=== PATIENT | female | born 1990 | race Caucasian/White ===

== ENCOUNTER 2016-12-20 11:20 | Emergency (ER) | payer MEDICAID ==
[~2016-12-20] VITALS: Ht 165.1 cm; Wt 81.0 kg
[2016-12-20 11:20] VITALS: BP 131/72; PULSE 73; RESP 12; TEMP 98.1; O2SAT 98; Ht 165.1 cm; Wt 81.0 kg
[~2016-12-20 11:20] MED LIST: CYCL-375 PO; DIAZ10TA PO; OXYC1TAB13 PO; SERT100T PO
--- OUTSIDE RECORDS SUMMARY | 2016-12-20 11:25 | XMS REPORT | Referral Summary ---
Author Author [facility] Organization [facility] Address Unknown Phone Unavailable Care Team Providers Care Truckload Checker Name Role Phone James Vega Primary Care Physician [phone] Encounter MARINA [id number] Date(s): 04/28/16 - 04/28/16 [facility], [facility] [address] [place] [id number] Discharge Diagnosis: Vitamin D deficiency Discharge Diagnosis: Body aches Discharge Diagnosis: Fatigue Discharge Disposition: 01-Home or Self Care Attending Physician: Kandi Fowler Admitting Physician: Kandi Fowler Vital Signs Most recent to 1 oldest [Reference Range]: Temperature Oral 37.0 degC [35.8-37.3 degC] (04/28/16 1:48 PM) Blood Pressure 112/64 mmHg [90-140/60-90 mmHg] (04/28/16 1:48 PM) Problem List Condition Effective Dates Status Health Status Informant Allergy rhinitis/hay Active fever(Confirmed) Alopecia(Confirmed) Active Anxiety state Active (finding)(Confirmed) Hemorrhoids, Active internal, with bleeding(Confirmed) Bronchitis(Confirmed Active ) Depressed bipolar I Active disorder (disorder)(Confirmed ) External hemorrhoids Active without complication (disorder)(Confirmed ) Fibromyalgia(Confirm Active ed) Insomnia(Confirmed) Active Irritable bowel Active disease(Confirmed) Migraine Active headaches(Confirmed) Obesity(Confirmed) Active patient Severe mixed bipolar Active I disorder without psychotic features (disorder)(Confirmed ) Allergies, Adverse Reactions, Alerts Substance Reaction Severity Status Diclofenac Sodium Nausea and vomiting Mild Active 01-APR-2016 16:29:05<$> HYDROcodone Active lamoTRIgine rash Active nortriptyline Pt states-Heart Attack symptoms Active penicillin Hives Active Stadol Active Medications Ambien 10 mg oral tablet 5 mg 0.5 tabs, Oral, Bedtime (once a day), as needed for sleep, # 15 tabs, 0 Refill(s) Start Date: 03/31/16 Status: Ordered cyclobenzaprine 10 mg oral tablet See Instructions, TAKE ONE TABLET BY MOUTH THREE TIMES DAILY, # 90 tabs, eRx: [id number], TAKE ONE TABLET BY MOUTH THREE TIMES DAILY Start Date: 03/27/16 Status: Ordered sertraline 100 mg oral tablet 200 mg 2 tabs, Oral, Daily, # 60 tabs, 3 Refill(s), Pharmacy: [facility] # [id number], 2 tabs Oral Daily Start Date: 01/31/16 Status: Ordered Valium 10 mg oral tablet 10 mg 1 tabs, Oral, TID, as needed for anxiety, # 40 tabs, 0 Refill(s), called to pharmacy (Rx) Start Date: 04/01/16 Status: Ordered Vicoprofen 7.5 mg-200 mg oral tablet 1-2 tabs, Oral, q4hr, as needed for pain, # 60 tabs, 0 Refill(s) Start Date: 04/28/16 Status: Ordered Results Hematology Most recent to 1 oldest [Reference Range]: WBC [4.8-10.8 8.8 10*3/uL 10*3/uL] (04/28/16 2:33 PM) RBC [4.00-5.20] 4.87 (04/28/16 2:33 PM) Hgb [12.0-16.0 14.3 gm/dL gm/dL] (04/28/16 2:33 PM) Hct [37.0-47.0 %] 41.2 % (04/28/16 2:33 PM) MCV [82.0-99.0 fL] 84.6 fL (04/28/16 2:33 PM) MCH [27.0-32.0 pg] 29.4 pg (04/28/16 2:33 PM) MCHC [32.0-36.0 34.7 gm/dL gm/dL] (04/28/16 2:33 PM) RDW [11.5-14.5 %] 12.5 % (04/28/16 2:33 PM) Platelet [150-400 259 10*3/uL 10*3/uL] (04/28/16 2:33 PM) MPV [8.8-14.8 fL] 10.7 fL (04/28/16 2:33 PM) Immature 0.3 % Granulocytes (04/28/16 2:33 PM) [0.0-1.0 %] Neutrophils [51-75 68 % %] (04/28/16 2:33 PM) Lymphocytes [20-46 24 % %] (04/28/16 2:33 PM) Monocytes [4-11 %] 6 % (04/28/16 2:33 PM) Eosinophils [0-4 %] 1 % (04/28/16 2:33 PM) Basophils [0-2 %] 0 % (04/28/16 2:33 PM) Neutro Absolute 6.00 10*3 [1.90-7.00 10*3] (04/28/16 2:33 PM) Lymph Absolute 2.12 10*3 [0.80-3.30 10*3] (04/28/16 2:33 PM) Craven Absolute 0.52 10*3 [0.30-1.00 10*3] (04/28/16 2:33 PM) Eos Absolute 0.10 10*3 [0.00-0.50 10*3] (04/28/16 2:33 PM) Baso Absolute 0.02 10*3 [0.00-0.20 10*3] (04/28/16 2:33 PM) Sed Rate [0-23] 7 (04/28/16 2:33 PM) Chemistry Most recent to 1 oldest [Reference Range]: Sodium Lvl [135-144 138 mEq/L mEq/L] (04/28/16 2:33 PM) Potassium Lvl 4.0 mEq/L [3.5-5.2 mEq/L] (04/28/16 2:33 PM) Chloride [99-111 104 mEq/L mEq/L] (04/28/16 2:33 PM) CO2 [22-31 mEq/L] 23 mEq/L (04/28/16 2:33 PM) AGAP [3-20] 11 (04/28/16 2:33 PM) BUN [7-19 mg/dL] 20 mg/dL *HI* (04/28/16 2:33 PM) Glucose Lvl [70-99 87 mg/dL mg/dL] (04/28/16 2:33 PM) Creatinine Lvl 0.86 mg/dL [0.57-1.11 mg/dL] (04/28/16 2:33 PM) eGFR [>60 mL/min] >60 mL/min 1 (04/28/16 2:33 PM) Calcium Lvl 9.9 mg/dL [8.9-10.5 mg/dL] (04/28/16 2:33 PM) Albumin Lvl [3.5-5.0 5.0 gm/dL gm/dL] (04/28/16 2:33 PM) Total Protein 7.7 gm/dL 2 [6.1-7.7 gm/dL] (04/28/16 2:33 PM) Globulin [1.8-4.0 2.7 gm/dL gm/dL] (04/28/16 2:33 PM) ALT [0-55 U/L] 49 U/L (04/28/16 2:33 PM) AST [5-34 U/L] 21 U/L (04/28/16 2:33 PM) Alk Phos [40-150 67 U/L U/L] (04/28/16 2:33 PM) Bili Total [0.2-1.2 0.6 mg/dL mg/dL] (04/28/16 2:33 PM) Uric Acid [2.6-6.0 4.5 mg/dL mg/dL] (04/28/16 2:33 PM) T4 Free [0.7-1.5 1.0 ng/dL ng/dL] (04/28/16 2:33 PM) TSH [0.35-4.94] 2.46 (04/28/16 2:33 PM) 1Result Comment: Multiply eGFR results by 1.21 for race. 2Result Comment: Please note new reference range for adult Protein. Immunizations Vaccine Date Refusal Reason diphtheria/pertussis, acel/tetanus ped 03/11/94 diphtheria/pertussis, acel/tetanus ped 08/26/90 diphtheria/pertussis, acel/tetanus ped 89 diphtheria/pertussis, acel/tetanus ped 89 diphtheria/pertussis, acel/tetanus ped 89 haemophilus b conjugate (HbOC) vaccine 05/28/90 hepatitis B pediatric vaccine 09/23/99 hepatitis B pediatric vaccine 03/28/99 hepatitis B pediatric vaccine 02/25/99 human papillomavirus vaccine 04/14/08 human papillomavirus vaccine 12/08/07 human papillomavirus vaccine 10/14/07 influenza virus vaccine, live 06/05/09 measles/mumps/rubella virus vaccine 05/28/90 meningococcal conjugate vaccine 10/14/07 poliovirus vaccine, inactivated 03/07/04 poliovirus vaccine, inactivated 03/11/94 poliovirus vaccine, inactivated 08/26/90 poliovirus vaccine, inactivated 89 poliovirus vaccine, inactivated 89 tetanus-diphth toxoids (Td) adult/adol 03/13/04 Procedures Procedure Date Related Diagnosis Body Site Adenoidectomy Appendectomy Cholecystectomy Lump removal1 Sinus surgery2 Tonsillectomy 1See NextGen. 2see NextGen. Social History Social History Type Response Smoking Status Never smoker Assessment and Plan Extracted from: Title: Office Visit Note Author: Kandi Fowler Date: 04/28/16 Assessment/Plan 1.Fatigue She will be notified of results. Will order sleep study. F/U based on results. Ordered: BERNARDINO Screen CBC w/ Differential Comprehensive Metabolic Panel Free T4 Rheumatoid Factor Sedimentation Rate TSH 3rd Generation Uric Acid 2.Body aches Vicoprofen instead of Percocet. Ordered: BERNARDINO Screen Rheumatoid Factor Sedimentation Rate Uric Acid 3.Vitamin D deficiency Will check Vitamin D level. Ordered: Vitamin D 25 Hydroxy Level Orders: HYDROcodone-ibuprofen, 1-2 tabs, Oral, q4hr, as needed for pain, # 60 tabs, 0 Refill(s)
--- OUTSIDE RECORDS SUMMARY | 2016-12-20 11:25 | XMS REPORT | Referral Summary ---
Author Author [facility] Organization [facility] Address Unknown Phone Unavailable Care Team Providers Care Butt Trimmer Name Role Phone James Vega Primary Care Physician [phone] Encounter VC GRAY [id number] Date(s): 05/10/15 - 05/10/15 [facility] [address] [place] [id number] Discharge Diagnosis: Sinus pressure Discharge Diagnosis: Oral aphthous ulcer Discharge Diagnosis: Headache Discharge Disposition: 01-Home or Self Care Attending Physician: Kandi Fowler Vital Signs Most recent to 1 oldest [Reference Range]: Temperature Oral 36.9 degC [35.8-37.3 degC] (05/10/15 1:44 PM) Peripheral Pulse 107 bpm Rate [60-100 bpm] *HI* (05/10/15 1:44 PM) Blood Pressure 110/70 mmHg [90-140/60-90 mmHg] (05/10/15 1:44 PM) SpO2 96 % (05/10/15 1:44 PM) Problem List Condition Effective Dates Status Health Status Informant Allergy rhinitis/hay Active fever(Confirmed) Alopecia(Confirmed) Active Anxiety state Active (finding)(Confirmed) Hemorrhoids, Active internal, with bleeding(Confirmed) Depressed bipolar I Active disorder (disorder)(Confirmed ) External hemorrhoids Active without complication (disorder)(Confirmed ) Fibromyalgia(Confirm Active ed) Insomnia(Confirmed) Active Irritable bowel Active disease(Confirmed) Migraine Active headaches(Confirmed) Obesity(Confirmed) Active patient Severe mixed bipolar Active I disorder without psychotic features (disorder)(Confirmed ) Allergies, Adverse Reactions, Alerts Substance Reaction Severity Status HYDROcodone Active lamoTRIgine rash Active nortriptyline Pt states-Heart Attack symptoms Active penicillin Hives Active Stadol Active Medications Ambien 10 mg oral tablet 5 mg 0.5 tabs, Oral, Bedtime (once a day), as needed for sleep, LF 09/11/15, # 15 tabs, 0 Refill(s) Start Date: 11/08/15 Status: Ordered Ativan 0.5 mg oral tablet .5-1 tabs, Oral, BID, as needed for anxiety, # 30 tabs, 0 Refill(s) Start Date: 01/12/15 Status: Ordered Bystolic 5 mg oral tablet 1 tabs, Oral, Daily, # 30 tabs, 5 Refill(s), Pharmacy: [facility] #[facility], 1 tabs Oral Daily Start Date: 01/05/15 Status: Ordered cyclobenzaprine 10 mg oral tablet 10 mg 1 tabs, Oral, TID, # 90 tabs, 0 Refill(s), Pharmacy: [facility] #[facility] , 1 tabs Oral TID Start Date: 04/02/15 Status: Ordered Fiorinal oral capsule 2 caps, Oral, q6hr, as needed for pain, # 30 caps, 0 Refill(s) Start Date: 07/17/15 Status: Ordered Percocet 10/325 oral tablet 1 tabs, Oral, q6hr, as needed for pain, # 60 tabs, 0 Refill(s) Start Date: 09/17/15 Status: Ordered Saxenda 18 mg/3 mL subcutaneous solution 3 mg, SubCutaneous, Daily, # 15 mL, 5 Refill(s), Pharmacy: [facility] , 3 mg SubCutaneous Daily,x30 days Start Date: 04/24/15 Stop Date: 10/21/15 Status: Ordered sertraline 50 mg oral tablet 150 mg 3 tabs, Oral, Daily, # 270 tabs, 3 Refill(s), Pharmacy: [facility] # [facility], 3 tabs Oral Daily Start Date: 08/14/15 Status: Ordered Topamax 25 mg oral tablet See Instructions, 1 tab oral qhs x1 week, then 1 tab BID, # 60 tabs, 0 Refill(s) , Pharmacy: [facility], 1 tab oral qhs x1 week, then 1 tab BID Start Date: 10/05/15 Status: Ordered Valium 10 mg oral tablet 10 mg 1 tabs, Oral, TID, as needed for anxiety, # 30 tabs, 0 Refill(s) Start Date: 09/17/15 Status: Ordered Results No data available for this section Immunizations Vaccine Date Refusal Reason diphtheria/pertussis, acel/tetanus [...] Office Visit Note Author: Kandi Fowler Date: 05/10/15 Assessment/Plan 1.Oral aphthous ulcer Magic mouthwash. Ordered: triamcinolone, 80 mg, IntraMuscular, Once, First Dose: 05/10/15 15:00:00 CDT, Stop Date: 05/10/15 15:00:00 CDT 2.Headache Ordered: triamcinolone, 80 mg, IntraMuscular, Once, First Dose: 05/10/15 15:00:00 CDT, Stop Date: 05/10/15 15:00:00 CDT 3.Sinus pressure Kenalog 80 mg IM. Z-aleksey. Follow up 1 week if symptoms persist. Ordered: triamcinolone, 80 mg, IntraMuscular, Once, First Dose: 05/10/15 15:00:00 CDT, Stop Date: 09/03/15 15:00:00 CDT Orders: azithromycin, 1 packets, Oral, Daily, as directed on package labeling , X 5 days, # 6 tabs, 0 Refill(s), Pharmacy: [facility] #[facility], 1 packets Oral Daily,x5 days,Instr:as directed on package labeling lidocaine topical, 0.1 g 5 mL, Topical, QIDACHS, Mix equal parts Benadryl Elixir, Maalox, Carafate solution and Viscous lidocaine to total 100 mL, # 100 mL, 2 Refill(s), Pharmacy: [facility] #[facility] oxyCODONE-acetaminophen, 1 tabs, Oral, q6hr, as needed for pain, # 60 tabs, 0 Refill(s) sertraline, 100 mg 2 tabs, Oral, Daily, # 180 tabs, 3 Refill(s), Pharmacy: [facility] #[facility], 2 tabs Oral Daily zolpidem, 5 mg 0.5 tabs, Oral, Bedtime (once a day), as needed for sleep, # 15 tabs, 0 Refill(s)
--- OUTSIDE RECORDS SUMMARY | 2016-12-20 11:25 | XMS REPORT | Referral Summary ---
Author Author [facility] Organization [facility] Address Unknown Phone Unavailable Care Team Providers Care Counter Former Name Role Phone aJmes Vega Primary Care Physician [phone] Encounter VC Date(s): 12/13/15 - 12/13/15 [facility] [address] [place] [id number] Discharge Diagnosis: Acute right flank pain Discharge Diagnosis: RLQ abdominal pain Discharge Disposition: 01-Home or Self Care Attending Physician: Naa Dutton APRN Admitting Physician: Naa Dutton APRN Referring Physician: Amish Vega MD Vital Signs Most recent to 1 oldest [Reference Range]: Temperature Oral 36.4 degC [35.8-37.3 degC] (12/13/15 8:53 AM) Peripheral Pulse 82 bpm Rate [60-100 bpm] (12/13/15 8:53 AM) Respiratory Rate 18 br/min [14-20 br/min] (12/13/15 8:53 AM) Blood Pressure 120/82 mmHg [90-140/60-90 mmHg] (12/13/15 8:53 AM) SpO2 99 % (12/13/15 8:53 AM) Problem List Condition Effective Dates Status Health [...] needed for sleep, # 15 tabs, 0 Refill(s), called to pharmacy (Rx) Start Date: 12/04/15 Status: Ordered Ativan 0.5 mg oral tablet [...] Oral TID Start Date: 04/02/15 Status: Ordered diclofenac sodium 75 mg oral delayed release tablet 75 mg 1 tabs, Oral, BID, # 60 tabs, 3 Refill(s), Pharmacy: [facility] , 1 tabs Oral BID Start Date: 12/13/15 Status: Ordered Fiorinal oral capsule 2 caps, Oral, q6hr, as needed for pain, # 30 caps, 0 Refill(s) Start Date: 07/17/15 Status: Ordered Percocet 10/325 oral tablet 1 tabs, Oral, q6hr, as needed for pain, # 60 tabs, 0 Refill(s) Start Date: 12/13/15 Status: Ordered Saxenda 18 mg/3 mL subcutaneous [...] Oral Daily Start Date: 08/14/15 Status: Ordered Skelaxin 800 mg oral tablet 800 mg 1 tabs, Oral, Bedtime (once a day), # 30 tabs, 1 Refill(s), Pharmacy: [facility], 1 tabs Oral Bedtime (once a day) Start Date: 12/04/15 Status: Ordered Topamax 25 mg oral tablet [...] Refill(s) Start Date: 09/17/15 Status: Ordered Results Urinalysis Most recent to 1 oldest [Reference Range]: UA Color Yellow (12/13/15 10:05 AM) UA Appear Sl Cloudy (12/13/15 10:05 AM) UA pH [5.0-8.0] 5.0 (12/13/15 10:05 AM) UA Leuk Est Negative [Negative] (12/13/15 10:05 AM) UA Nitrite Negative [Negative] (12/13/15 10:05 AM) UA Protein Negative [Negative] (12/13/15 10:05 AM) UA Glucose Negative [Negative] (12/13/15 10:05 AM) UA Ketones Negative [Negative] (12/13/15 10:05 AM) UA Urobilinogen 0.2 mg/dL [<=1.0 mg/dL] (12/13/15 10:05 AM) UA Bili [Negative] Negative (12/13/15 10:05 AM) UA Blood [Negative] Negative (12/13/15 10:05 AM) UA Spec Grav 1.025 [1.003-1.030] (12/13/15 10:05 AM) Type Clean Catch (12/13/15 10:05 AM) Microbiology Reports TEST: Wet Prep Exam STATUS: Auth (Verified) BODY SITE: SOURCE: Vaginal COLLECTED DATE/TIME: 12/13/15 10:05 AM Wet Prep Exam No Trichomonas, yeast or clue cells observed Immunizations Vaccine Date Refusal Reason diphtheria/pertussis, acel/tetanus [...] smoker Assessment and Plan Extracted from: Title: Right flank and suprapubic Author: Naa Dutton APRN Date: pain Assessment/Plan Acute right flank pain Repeat UA to ensure no changes. Do have some suspicion for renal calculi. Ordered: Office Visit Level 4 Est [id number] Urinalysis with Culture if Indicated US Transvaginal/Pelvic Complete RLQ abdominal pain Did refill Percocet for use at bedtime only. IM Toradol and use of Diclofenac BID for at least 4-6 weeks. Repeat sonogram pending. Follow closely. Await cultures. Ordered: Chlamydia/GC Nucleic Acid Screen Genital Culture Office Visit Level 4 Est [id number] Urinalysis with Culture if Indicated US Transvaginal/Pelvic Complete Wet Prep Exam Orders: diclofenac, 75 mg 1 tabs, Oral, BID, # 60 tabs, 3 Refill(s), Pharmacy : [id number], 1 tabs Oral BID oxyCODONE-acetaminophen, 1 tabs, Oral, q6hr, as needed for pain, # 60 tabs, 0 Refill(s) Addendum Renal CT was performed 05/02/14. Recent UA 11/23/15 was negative. by Naa Dutton APRN on December 13, 2015 10:31:40 CDT
--- OUTSIDE RECORDS SUMMARY | 2016-12-20 11:25 | XMS REPORT | Referral Summary ---
Author Author [facility] Organization [facility] Address Unknown Phone Unavailable Care Team Providers Care Barrer And Tacker Name Role Phone James Vega Primary Care Physician [phone] Encounter VC GRAY [id number] Date(s): 04/24/15 - 04/24/15 [facility] [address] [place] [id number] Discharge Diagnosis: Obesity Discharge Disposition: 01-Home or Self Care Attending Physician: Kandi Fowler Admitting Physician: Kandi Fowler Vital Signs Most recent to 1 oldest [Reference Range]: Peripheral Pulse 92 bpm Rate [60-100 bpm] (04/24/15 1:27 PM) Blood Pressure 110/74 mmHg [90-140/60-90 mmHg] (04/24/15 1:27 PM) Problem List Condition Effective Dates Status [...] Refill(s), called to pharmacy (Rx) Start Date: 09/11/15 Status: Ordered Ativan 0.5 mg oral tablet [...] 0 Refill(s) Start Date: 09/17/15 Status: Ordered Percocet 10/325 oral tablet 1 tabs, Oral, q6hr, as needed for pain, # 60 tabs, 0 Refill(s) Start Date: 08/14/15 Status: Ordered Saxenda 18 mg/3 mL subcutaneous [...] 0 Refill(s) Start Date: 09/17/15 Status: Ordered Valium 10 mg oral tablet 10 mg 1 tabs, Oral, TID, as needed for anxiety, # 30 tabs, 0 Refill(s) Start Date: 08/07/15 Status: Ordered Results No data available for [...] Office Visit Note Author: Kandi Fowler Date: 04/24/15 Assessment/Plan 1.Obesity Discussed multiple weight loss options. Patient will start Saxenda. Instructions for use and possible side effects discussed. She self- administered her first dose in the office and showed proficiency. Follow up in 1 month. Orders: liraglutide, 3 mg, SubCutaneous, Daily, # 15 mL, 5 Refill(s), Pharmacy : [id number], 3 mg SubCutaneous Daily,x30 days
--- OUTSIDE RECORDS SUMMARY | 2016-12-20 11:25 | XMS REPORT | Referral Summary ---
Author Author [facility] Organization [facility] Address Unknown Phone Unavailable Care Team Providers Care Privacy Director Name Role Phone James Vega Primary Care Physician [phone] Encounter Date(s): 08/04/16 - 08/04/16 [facility], [facility] [address] [place] [id number] Discharge Disposition: 01-Home or Self Care Attending Physician: Maritza Bello PA-C Admitting Physician: Maritza Bello PA-C Referring Physician: mAish Vega MD Vital Signs Most recent to 1 oldest [Reference Range]: Peripheral Pulse 91 bpm Rate [60-100 bpm] (08/04/16 1:51 PM) Blood Pressure 126/78 mmHg [90-140/60-90 mmHg] (08/04/16 1:51 PM) Problem List Condition Effective Dates Status [...] Reaction Severity Status Diclofenac Sodium Nausea and vomiting..... Mild Active HYDROcodone Active lamoTRIgine rash Active nortriptyline Pt states-Heart Attack symptoms Active penicillin Hives Active Stadol Active Vicoprofen Active Medications Ambien 10 mg oral tablet 5 mg 0.5 tabs, Oral, Bedtime (once a day), as needed for sleep, # 15 tabs, 0 Refill(s) Start Date: 06/03/16 Status: Ordered cyclobenzaprine 10 mg oral tablet See Instructions, TAKE ONE TABLET BY MOUTH THREE TIMES DAILY, # 90 tabs, eRx: [facility] [id number] [facility], TAKE ONE TABLET BY MOUTH THREE TIMES DAILY Start Date: 03/27/16 Status: Ordered Drisdol 50,000 intl units (1.25 mg) oral capsule See Instructions, 1 cap every other week x 3 months, # 6 Each, 0 Refill(s), Pharmacy: [facility] [id number] [facility], 1 cap every other week x 3 months Start Date: 04/30/16 Status: Ordered hydrOXYzine hydrochloride 50 mg oral tablet 50 mg 1 tabs, Oral, QID, itching, # 60 tabs, 5 Refill(s), Pharmacy: [facility] [id number] [facility], 1 tabs Oral QID,PRN:itching Start Date: 05/09/16 Status: Ordered Magic Mouthwash Magic Mouthwash, See Instructions, Benadryl Elixir 50mL, Viscous Lidocaine 2% 50 mL, Maalox 50 mL, Carafate Solution 50 mL Swish/Spit 5mL QID x10 days, # 200 mL, 0 Refill(s), Pharmacy: [facility] [id number] [facility], Benadryl Elixir 50mL, Viscous Lidocaine 2% 5... Start Date: 05/06/16 Status: Ordered Percocet 10/325 oral tablet 1 tabs, Oral, q6hr, as needed for pain, # 120 tabs, 0 Refill(s) Start Date: 07/22/16 Status: Ordered promethazine 50 mg oral tablet 1-2 tabs, Oral, Bedtime (once a day), as needed for nausea/vomiting, # 30 tabs, 0 Refill(s), Pharmacy: [facility]/pharmacy #[id number], 1-2 tabs Oral Bedtime (once a day), PRN:as needed for nausea/vomiting Start Date: 07/09/16 Status: Ordered sertraline 100 mg oral tablet See Instructions, TAKE 2 TABLETS BY MOUTH DAILY, # 60 tabs, 1 Refill(s), Pharmacy: [facility]/pharmacy #[id number], please be sure to fill 100mg script as it was last filled as 50mg script. Thanks., TAKE 2 TABLETS BY MOUTH DAILY Start Date: 07/22/16 Status: Ordered Valium 10 mg oral tablet 10 mg 1 tabs, Oral, TID, as needed for anxiety, # 40 tabs, 0 Refill(s), called to pharmacy (Rx) Start Date: 04/01/16 Status: Ordered Results No data available for [...] Smoking Status Never smoker Assessment and Plan No data available for this section
--- OUTSIDE RECORDS SUMMARY | 2016-12-20 11:25 | XMS REPORT | Referral Summary ---
Author Author [facility] Organization [facility] Address Unknown Phone Unavailable Care Team Providers Care Fire Extinguisher Charger Name Role Phone James Vega Primary Care Physician [phone] Encounter VC Date(s): 10/03/15 - 10/03/15 [facility] [address] [place] [id number] Discharge Disposition: 01-Home or Self Care Attending Physician: Amish Vega MD Admitting Physician: Amish Vega MD Vital Signs No data available for this section Problem List Condition Effective Dates Status Health [...] Oral Daily Start Date: 08/14/15 Status: Ordered Valium 10 mg oral tablet [...] this section Immunizations Vaccine Date Refusal Reason hepatitis B adult vaccine 09/23/99 hepatitis B pediatric vaccine 03/28/99 hepatitis B pediatric vaccine 02/25/99 human papillomavirus vaccine 04/14/08 human papillomavirus vaccine 12/08/07 human papillomavirus vaccine 10/14/07 influenza virus vaccine, live 06/05/09 meningococcal conjugate vaccine 10/14/07 tetanus-diphth toxoids (Td) adult/adol 03/13/04 Procedures Procedure Date Related Diagnosis Body Site Adenoidectomy Appendectomy Cholecystectomy Lump removal1 Sinus surgery2 Tonsillectomy 1See NextGen. 2see NextGen. Social History Social History Type Response Smoking Status Never smoker Assessment and Plan No data available for this section
--- OUTSIDE RECORDS SUMMARY | 2016-12-20 11:25 | XMS REPORT | Referral Summary ---
Author Author [facility] Organization [facility] Address Unknown Phone Unavailable Care Team Providers Care Software Applications Engineer Name Role Phone James Vega Primary Care Physician [phone] Encounter [facility] Date(s): 05/21/15 - 05/21/15 [facility] [address] [place] [id number] Discharge Diagnosis: Heart palpitations Discharge Diagnosis: Near syncope Discharge Disposition: 01-Home or Self Care Attending Physician: Kandi Fowler Admitting Physician: Kandi Fowler Vital Signs Most recent to 1 oldest [Reference Range]: Peripheral Pulse 80 bpm Rate [60-100 bpm] (05/21/15 10:14 AM) Blood Pressure 106/76 mmHg [90-140/60-90 mmHg] (05/21/15 10:14 AM) Problem List Condition Effective Dates Status [...] Refill(s) Start Date: 09/17/15 Status: Ordered Results Chemistry Most recent to 1 oldest [Reference Range]: Glucose Lvl [70-99 87 mg/dL mg/dL] (05/21/15 11:35 AM) Glucose Fasting 86 mg/dL [70-99 mg/dL] (05/21/15 11:35 AM) Gluc 1 Hr [120-170 152 mg/dL mg/dL] (05/21/15 11:35 AM) Gluc 2 Hr [70-139 75 mg/dL mg/dL] (05/21/15 11:35 AM) Insulin Fasting 9 [2-23] (05/21/15 11:35 AM) INS OBI - 1 hr 145 Specimen [41-101] *HI* (05/21/15 11:35 AM) INS OBI - 2 hr 36 Specimen [9-57] (05/21/15 11:35 AM) T4 Free [0.7-1.5 1.2 ng/dL ng/dL] (05/21/15 11:35 AM) TSH [0.35-4.94] 1.11 (05/21/15 11:35 AM) Immunizations Vaccine Date Refusal Reason diphtheria/pertussis, acel/tetanus [...] Office Visit Note Author: Kandi Fowler Date: 05/21/15 Assessment/Plan 1.Heart palpitations Hold Saxenda. It sounds like hypoglycemic reaction due to decreased protein and calorie intake. Will check lab for improper insulin response and consider insulation inspector referral. Follow up based on lab results. Ordered: Free T4 Glucose Lvl Glucose Tolerance 2 Hour Insulin Tolerance 2 hour TSH 3rd Generation 2.Near syncope
--- OUTSIDE RECORDS SUMMARY | 2016-12-20 11:26 | XMS REPORT | Referral Summary ---
Author Author [facility] Organization [facility] Address Unknown Phone Unavailable Care Team Providers Care Water Softener Servicer Name Role Phone James Vega Primary Care Physician [phone] Encounter [facility] [id number] Date(s): 10/29/16 - 10/29/16 [facility] [address] [place] [id number] Discharge Diagnosis: Annual physical exam Discharge Diagnosis: Fatigue Discharge Diagnosis: Low back pain Discharge Diagnosis: Depression Discharge Disposition: 01-Home or Self Care Attending Physician: Amish Vega MD Vital Signs Most recent to 1 oldest [Reference Range]: Peripheral Pulse 92 bpm Rate [60-100 bpm] (10/29/16 9:21 AM) Respiratory Rate 18 br/min [14-20 br/min] (10/29/16 9:21 AM) Blood Pressure 124/84 mmHg [90-140/60-90 mmHg] (10/29/16 9:21 AM) SpO2 99 % (10/29/16 9:21 AM) Problem List Condition Effective Dates Status Health Status Informant Allergy rhinitis/hay Active fever(Confirmed) Alopecia(Confirmed) Active Anxiety state Active (finding)(Confirmed) Hemorrhoids, Active internal, with bleeding(Confirmed) Bronchitis(Confirmed Active ) Depressed bipolar I Active disorder (disorder)(Confirmed ) External hemorrhoids Active without complication (disorder)(Confirmed ) Fatigue(Confirmed) Active Fibromyalgia(Confirm Active ed) Insomnia(Confirmed) Active Irritable bowel Active disease(Confirmed) Low back Active pain(Confirmed) Migraine Active headaches(Confirmed) Depression(Confirmed Active ) Obesity(Confirmed) Active patient Annual physical Active exam(Confirmed) Annual physical Active exam(Confirmed) Severe mixed bipolar Active I disorder without [...] a day), as needed for sleep, # 30 tabs, 0 Refill(s), called to pharmacy (Rx) Start Date: 10/07/16 Status: Ordered cyclobenzaprine 10 mg oral tablet See Instructions, TAKE 1 TABLET BY MOUTH 3 TIMES A DAY, # 90 tabs, eRx: [facility]/ pharmacy #[id number] Start Date: 09/23/16 Status: Ordered Drisdol 50,000 intl units (1.25 mg) oral capsule See Instructions, 1 cap every other week x 3 months, # 6 Each, 0 Refill(s), Pharmacy: [facility] [id number] [facility], 1 cap every other week x 3 months Start Date: 04/30/16 Status: Ordered Magic Mouthwash Magic Mouthwash, See Instructions, Benadryl Elixir 50mL, Viscous Lidocaine 2% 50 mL, Maalox 50 mL, Carafate Solution 50 mL Swish/Spit 5mL QID x10 days, # 200 mL, 0 Refill(s), Pharmacy: [facility] [id number] [facility], Benadryl Elixir 50mL, Viscous Lidocaine 2% 5... Start Date: 05/06/16 Status: Ordered Percocet 10/325 oral tablet 1 tabs, Oral, q6hr, as needed for pain, # 120 tabs, 0 Refill(s) Start Date: 10/29/16 Status: Ordered sertraline 100 mg oral tablet See Instructions, TAKE 2 TABLETS BY MOUTH DAILY, # 180 tabs, 6 Refill(s), Pharmacy: [facility]/pharmacy #[id number], TAKE 2 TABLETS BY MOUTH DAILY Start Date: 10/29/16 Status: Ordered Valium 10 mg oral tablet 10 mg 1 tabs, Oral, TID, as needed for anxiety, # 40 tabs, 0 Refill(s), called to pharmacy (Rx) Start Date: 04/01/16 Status: Ordered Results No data available for this section Immunizations Given and Recorded Vaccine Date Status Refusal Reason diphtheria/pertussis, acel/tetanus ped 03/11/94 Recorded diphtheria/pertussis, acel/tetanus ped 08/26/90 Recorded diphtheria/pertussis, acel/tetanus ped 89 Recorded diphtheria/pertussis, acel/tetanus ped 89 Recorded diphtheria/pertussis, acel/tetanus ped 89 Recorded haemophilus b conjugate (HbOC) vaccine 05/28/90 Recorded hepatitis B adult vaccine1 09/23/99 Given hepatitis B pediatric vaccine 09/23/99 Recorded hepatitis B pediatric vaccine 03/28/99 Given hepatitis B pediatric vaccine 02/25/99 Given human papillomavirus vaccine 04/14/08 Given human papillomavirus vaccine 12/08/07 Given human papillomavirus vaccine 10/14/07 Given influenza virus vaccine, live 06/05/09 Given measles/mumps/rubella virus vaccine 05/28/90 Recorded meningococcal conjugate vaccine 10/14/07 Given poliovirus vaccine, inactivated 03/07/04 Recorded poliovirus vaccine, inactivated 03/11/94 Recorded poliovirus vaccine, inactivated 08/26/90 Recorded poliovirus vaccine, inactivated 89 Recorded poliovirus vaccine, inactivated 89 Recorded tetanus-diphth toxoids (Td) adult/adol 03/13/04 Given tetanus-diphth toxoids (Td) adult/adol2 03/13/04 Given 1Result Comment: [10/05/2015 Uncharted] duplicate 2Result Comment: [08/01/2014 Uncharted] Duplicate JMT Procedures Procedure Date Related Diagnosis Body Site Adenoidectomy Appendectomy Cholecystectomy Lump removal1 Sinus surgery2 Tonsillectomy 1See NextGen. 2see NextGen. Social History Social History Type Response Smoking Status Never smoker Assessment and Plan Extracted from: Title: Ambulatory Patient Education Author: Amish Vega MD Date: 10/29 Musculoskeletal Back Pain, Adult Back pain is very common in adults.The cause of back pain is rarely dangerous and the pain often gets better over time.The cause of your back pain may not be known. Some common causes of back pain include: Strain of the muscles or ligaments supporting the spine. Wear and tear (degeneration) of the spinal disks. Arthritis. Direct injury to the back. For many people, back pain may return. Since back pain is rarely dangerous, most people can learn to manage this condition on their own. HOME CARE INSTRUCTIONS Watch your back pain for any changes. The following actions may help to lessen any discomfort you are feeling: Remain active. It is stressful on your back to sit or tempering kiln tender one place for long periods of time. Do not sit, drive, or tempering kiln tender one place for more than 30 minutes at a time. Take short walks on even surfaces as soon as you are able.Try to increase the length of time you walk each day. Exercise regularly as directed by your health care provider. Exercise helps your back heal faster. It also helps avoid future injury by keeping your muscles strong and flexible. Do not stay in bed.Resting more than 12 days can delay your recovery. Pay attention to your body when you bend and lift. The most comfortable positions are those that put less stress on your recovering back. Always use proper lifting techniques, including: Bending your knees. Keeping the load close to your body. Avoiding twisting. Find a comfortable position to sleep. Use a firm mattress and lie on your side with your knees slightly bent. If you lie on your back, put a pillow under your knees. Avoid feeling anxious or stressed.Stress increases muscle tension and can worsen back pain.It is important to recognize when you are anxious or stressed and learn ways to manage it, such as with exercise. Take medicines only as directed by your health care provider. Over-the- counter medicines to reduce pain and inflammation are often the most helpful. Your health care provider may prescribe muscle relaxant drugs.These medicines help dull your pain so you can more quickly return to your normal activities and healthy exercise. Apply ice to the injured area: Put ice in a plastic bag. Place a towel between your skin and the bag. Leave the ice on for 20 minutes, 23 times a day for the first 23 days. After that, ice and heat may be alternated to reduce pain and spasms. Maintain a healthy weight. Excess weight puts extra stress on your back and makes it difficult to maintain good posture. SEEK MEDICAL CARE IF: You have pain that is not relieved with rest or medicine. You have increasing pain going down into the legs or buttocks. You have pain that does not improve in one week. You have night pain. You lose weight. You have a fever or chills. SEEK IMMEDIATE MEDICAL CARE IF: You develop new bowel or bladder control problems. You have unusual weakness or numbness in your arms or legs. You develop nausea or vomiting. You develop abdominal pain. You feel faint. This information is not intended to replace advice given to you by your health care provider. Make sure you discuss any questions you have with your health care provider. Document Released: 08/24/2006 Document Revised: 09/14/2015 Document Reviewed: [employer] Interactive Patient Education 2016 [employer] No follow up information was provided. Extracted from: Title: [facility] General Chart Author: Amish Vega MD Date: 10/29/16 Impression and Plan Diagnosis Annual physical exam (GHV01-UD Z00.00, Discharge, Medical). Depression (KCT31-ZR F32.9, Discharge, Medical). Fatigue (PXP24-VI R53.83, Discharge, Medical). Low back pain (WVO65-SW M54.5, Discharge, Medical). Course: Reviewed Prior Records. Orders Orders (Selected) Outpatient Orders Ordered Request for Service - [facility] [place] Prescriptions Prescribed Percocet 10/325 oral tablet: 1 tabs, Oral, q6hr, PRN: as needed for pain, 120 tabs, 0 Refill(s) sertraline 100 mg oral tablet: See Instructions, TAKE 2 TABLETS BY MOUTH DAILY, 180 tabs, 6 Refill(s). Dx/Order Association Plan: Diagnosis: 1. Annual physical exam Comment: Discussed age appropriate screening recommendations. Discussed the importance of routine exercise, responsible diet, and balance in life. In the absence of other medical issues I recommend follow up yearly for reevaluation and as needed for issues as they arise. Diagnosis: 2. Low back pain Comment: Discussed moving forward on treatment for the back instead of pain management. Recommended doing a few sessions with Bijan Martinez PT. Would like to try and avoid surgery. Continue taking Percocet 10/325 1 tablet q6hr. Percocet was refilled today. Diagnosis: 3. Depression Comment: Continue taking sertraline 100 mg 2 tabs daily. Sertraline was refilled today. Diagnosis: 4. Fatigue Comment: Stable, continue current care. .
--- OUTSIDE RECORDS SUMMARY | 2016-12-20 11:26 | XMS REPORT | Continuity of Care Document ---
Author Author Amish Vega MD Ambulatory Address [address] [place] [address] Phone Care Team Providers Care Manager Icu Name Role Phone Amish Vega PP Unavailable Kandi Fowler RP Unavailable Payers Payer name Insurance type Covered democrat ID Authorization(s) Unknown Problems Condition Effective Dates (start - stop) Clinical Status Lumbar disc herniation with myelopathy - *Symptomatic Tattoo of skin - *Acute Bipolar 1 disorder, mixed - *Poor control Panic anxiety syndrome - *Fair Control Fibromyalgia - Improved Bipolar affective disorder, current episode hypoma - *Chronic Mental confusion - *Worse Headache - *Acute Dizziness - *Acute Nausea And Vomiting - *Acute Visual disturbance - *Acute Dysarthria - *Acute Sinusitis, Acute - *Acute Follow-up examination, following other surgery - *Acute Adenosis, breast - *Acute Pain in joint involving shoulder region - *Chronic Backache - *Acute Bone pain - *Worse Fibromyalgia - *Worse Vitamin d deficiency - *Symptomatic Tachycardia - *Acute Pre-syncope - *Acute Palpitations - *Acute Sinusitis, Acute - *Acute Axillary mass - *Acute Lump or mass in breast - *Acute Backache - *Acute Abdominal pain, right lower quadrant - *Acute Post depression - *Worse Chest Pain, Unspecified - *Acute Bronchitis, Acute - *Acute Bipolar disorder - Acute Exacerbation Lymphadenopathy - *Chronic Axillary mass - *Acute Myalgia and myositis, unspecified - Chronic Lumbago - *Chronic Radiculitis, Thoracic or Lumbar - *Chronic Myalgia and myositis, unspecified - Chronic Therapeutic Drug Monitoring - *Chronic Paresthesia - *Acute Rash and other nonspecific skin eruption - *Acute Fever - *Acute Headache - *Acute Otalgia - *Acute Viral syndrome - *Acute Insomnia - *Chronic Hypersomnia, unspecified - *Chronic Other problems related to lifestyle - *Chronic Dysthymic disorder - *Chronic Respiratory Insufficiency - *Chronic Overweight - *Chronic 311 - DEPRESSIVE DISORDER NEC - Fibromyalgia - *Chronic Bipolar disorder current episode depressed - *Poor control Allergic rhinitis - Acute Exacerbation Hot flash not due to menopause - *Poor control Bipolar disorder, curr episode mixed, severe, w/o - * Uncontrolled Panic disorder - *Poor control Insomnia - *Poor control Fibromyalgia - Improved Weight gain - *Acute Hip pain, bilateral - *Worse Hand pain - *Poor control Bipolar disorder, current episode mixed, severe, w - * Uncontrolled Myalgia and myositis, unspecified - Chronic Myalgia and myositis, unspecified - Chronic Insomnia, Other - *Poor control Orthostatic hypotension - *Poor control Palpitations - Acute Exacerbation Visual disturbance - *Acute Abnormal weight gain - *Poor control Alopecia - *Worse Myalgia and myositis, unspecified - *Chronic Myalgia and myositis, unspecified - *Chronic Depression - *Chronic Insomnia - *Chronic Internal hemorrhoids with other complication - Chronic Rectal bleeding - *Chronic Hemorrhoids, external - Mild Internal hemorrhoids with other complication - Chronic Backache - *Chronic Flu-like symptoms - *Acute Hematuria - *Acute Vaginitis - *Acute Pharyngitis, Acute - *Acute Axillary lump - *Acute Depression - *Poor control Anxiety - *Poor control Insomnia, Other - *Poor control Hot flashes - *Chronic Decreased libido - *Chronic Rash - *Acute Alopecia areata - *Acute Fibromyalgia - *Symptomatic Anxiety - *Chronic Bipolar disorder, curr episode mixed, severe, w/o - *Poor control Hot flashes - *Chronic Insomnia - *Chronic Pneumonia - *Resolved Fibromyalgia - *Chronic Unspecified symptom associated with female genital organs - * Acute Hot flashes - *Chronic Backache - *Acute Family History Family Member Diagnosis Age At Onset Status Family h/o (Unknown) CAD Yes Paternal grandmother (Unknown) Parkinson's disease Yes Family h/o (Unknown) Rheumatoid Arthritis Yes Family h/o (Unknown) Lupus erythematosus Yes Father (Unknown) Hyperlipidemia Yes Social History Social History Element Description Quantity Unknown Allergies, Adverse Reactions, Alerts Substance Reaction Severity Status NORTRIPTYLINE Pt states-Heart Attack symptoms Unknown PENICILLINS Hives Unknown LAMOTRIGINE rash Unknown BUTORPHANOL TARTRATE Throat swelling Unknown Medications Medication Instructions Dosage Effective Dates (start - stop) Status Bystolic 5 mg tablet take 1 tablet (5MG) by oral route every day 5 MG - Active Ambien 10 mg tablet take 1 tablet (10MG) by oral route every day at bedtime as needed 10 MG - Active Percocet 10 mg-325 mg tablet take 1 - 2 by oral route every 6 hours as needed 0 - Active sertraline 50 mg tablet take 1 tablet (50MG) by oral route every day 50 MG - Active cyclobenzaprine 10 mg tablet take 1 tablet (10MG) by oral route 3 times every day as needed for back pain 10 MG - Active Ativan 0.5 mg tablet Take 0.5 - 1 tab PO BID PRN panic attacks 2013 - Active 1-2 po HS PRN - Active Immunizations Vaccine Date Status Comments HPV (quadrivalent) completed - Completed reason: source unspecified HPV (quadrivalent) completed - Completed reason: source unspecified HPV (quadrivalent) completed - Completed reason: source unspecified Td (adult) completed - Completed reason: source unspecified hep B (ped/adol, 3 dose) completed - Completed reason: source unspecified hep B (ped/adol, 3 dose) completed - Completed reason: source unspecified MCV4 completed - Completed reason: source unspecified flu (split) (3 yrs or older) completed - Completed reason: source unspecified Td (adult) completed - Completed reason: source unspecified hep B (adult) completed - Completed reason: source unspecified Results Test Name Date and Time Measure Units Reference Range Abnormal Flag Comments Unknown Vital Signs Date / Time: Height Weight Pulse Rate Blood Pressure Temperature /13:53:00 65.00 in 172.60 lbs 82 /min 112/70 mm[Hg] Procedures Procedure Date Unknown Encounters Encounter Location Date Patient Visit [address] Patient Visit [address] Patient Visit [address] Patient Visit [facility] Patient Visit [facility] Patient Visit [facility] Patient Visit [facility] Patient Visit [facility] Patient Visit [facility] Patient Visit [facility] Patient Visit [facility] Patient Visit [facility] Patient Visit [facility] Patient Visit [facility] Patient Visit [facility] Patient Visit [facility] Patient Visit [facility] Visit [facility] Patient Visit [facility] Patient Visit [facility] Patient Visit [facility] Patient Visit [facility] Patient Visit [facility] Patient Visit [facility] Patient Visit [facility] Patient Visit [facility] Patient Visit [facility] Patient Visit [facility] Patient Visit [facility] Patient Visit [facility] Patient Visit [facility] Patient [facility] Patient Visit [facility] Patient Visit [facility] Patient Visit [facility] Patient Visit [facility] Patient Visit [facility] Patient Visit [facility] Patient Visit [facility] Patient Visit [facility] Patient Visit [facility] Patient Visit [facility] Patient Visit [facility] Patient Visit [facility] Patient Visit [facility] Patient Visit [facility] Patient Visit [facility] Advance Directives Directive Effective Date Unknown
--- OUTSIDE RECORDS SUMMARY | 2016-12-20 11:26 | XMS REPORT | Referral Summary ---
Author Author [facility] Organization [facility] Address Unknown Phone Unavailable Care Team Providers Care Assistant Chief Engineer Name Role Phone James Vega Primary Care Physician [phone] Encounter [facility] Date(s): 01/31/16 - 01/31/16 [facility] [address] [place] [id number] Discharge Disposition: 01-Home or Self Care Attending Physician: Kandi Fowler Admitting Physician: Kandi Fowler Referring Physician: Amish Vega MD Vital Signs Most recent to 1 oldest [Reference Range]: Temperature Oral 37.1 degC [35.8-37.3 degC] (01/31/16 1:16 PM) Peripheral Pulse 96 bpm Rate [60-100 bpm] (01/31/16 1:16 PM) Blood Pressure 110/68 mmHg [90-140/60-90 mmHg] (01/31/16 1:16 PM) SpO2 98 % (01/31/16 1:16 PM) Problem List Condition Effective Dates Status [...] Diclofenac Sodium Nausea and vomiting Mild Active HYDROcodone Active lamoTRIgine rash Active nortriptyline Pt states-Heart Attack symptoms Active penicillin Hives Active Stadol Active Medications Ambien 10 mg oral tablet 5 mg 0.5 tabs, Oral, Bedtime (once a day), as needed for sleep, # 15 tabs, 0 Refill(s) Start Date: 01/14/16 Status: Ordered cyclobenzaprine 10 mg oral tablet 10 mg 1 tabs, Oral, TID, # 90 tabs, 0 Refill(s), Pharmacy: [id number] , 1 tabs Oral TID Start Date: 04/02/15 Status: Ordered Fiorinal oral capsule 2 caps, Oral, q6hr, as needed for pain, # 30 caps, 0 Refill(s) Start Date: 07/17/15 Status: Ordered methocarbamol 750 mg oral tablet 750 mg 1 tabs, Oral, Bedtime (once a day), # 30 tabs, 3 Refill(s), Pharmacy: [facility], Replaces Skelaxin, 1 tabs Oral Bedtime (once a day) Start Date: 12/20/15 Status: Ordered naproxen 500 mg oral tablet 500 mg 1 tabs, Oral, BID, # 60 tabs, 5 Refill(s), Pharmacy: [facility], 1 tabs Oral BID Start Date: 01/31/16 Status: Ordered Percocet 10/325 oral tablet 1 tabs, Oral, q6hr, as needed for pain, # 120 tabs, 0 Refill(s) Start Date: 01/31/16 Status: Ordered sertraline 100 mg oral tablet 200 mg 2 tabs, Oral, Daily, # 60 tabs, 3 Refill(s), Pharmacy: [facility], 2 tabs Oral Daily Start Date: 01/31/16 Status: Ordered sertraline 50 mg oral tablet 150 mg 3 tabs, Oral, Daily, # 270 tabs, 3 Refill(s), Pharmacy: [facility], 3 tabs Oral Daily Start Date: 08/14/15 Status: Ordered Valium 10 mg oral tablet 10 mg 1 tabs, Oral, TID, as needed for anxiety, # 40 tabs, 0 Refill(s) Start Date: 01/31/16 Status: Ordered Results No data available for [...]
--- OUTSIDE RECORDS SUMMARY | 2016-12-20 11:26 | XMS REPORT | Referral Summary ---
Author Author [facility] Organization [facility] Address Unknown Phone Unavailable Care Team Providers Care Traveling Freight Agent Name Role Phone James Vega Primary Care Physician [phone] Encounter VC Date(s): 10/16/16 - 10/16/16 [facility] [address] [place] [id number] Discharge Disposition: 01-Home or Self Care Attending Physician: Maritza Bello PA-C Admitting Physician: Maritza Bello PA-C Referring Physician: Amish Vega MD Vital Signs No [...] TIMES A DAY, # 90 tabs, [facility]: [id number] Start Date: 09/23/16 Status: Ordered Drisdol 50,000 intl units (1.25 mg) oral capsule See Instructions, 1 cap every other week x 3 months, # 6 Each, 0 Refill(s), Pharmacy: [facility] [id number] [facility], 1 cap every other week x 3 months Start Date: 04/30/16 Status: Ordered hydrOXYzine hydrochloride 50 mg oral tablet 50 mg 1 tabs, Oral, QID, itching, # 60 tabs, 5 Refill(s), Pharmacy: [facility] [id number] [facility], 1 tabs Oral QID,PRN:itching Start Date: 05/09/16 Status: Ordered Magic Mouthwash Magic Mouthwash, See Instructions, Benadryl Elixir 50mL, Viscous Lidocaine 2% 50 mL, Maalox 50 mL, Carafate Solution 50 mL Swish/Spit 5mL QID x10 days, # 200 mL, 0 Refill(s), Pharmacy: [facility] [id number] [facility], Benadryl Elixir 50mL, Viscous Lidocaine 2% 5... Start Date: 05/06/16 Status: Ordered Percocet 10/325 oral tablet 1 tabs, Oral, q6hr, as needed for pain, # 120 tabs, 0 Refill(s) Start Date: 09/09/16 Status: Ordered promethazine 25 mg oral tablet See Instructions, 1-2 tabs po q6hr prn n/v, # 30 tabs, 0 Refill(s), [id number], 1-2 tabs po q6hr prn n/v Start Date: 10/15/16 Status: Ordered promethazine 50 mg oral tablet 1-2 tabs, Oral, Bedtime (once a day), as needed for nausea/vomiting, # 30 tabs, 0 Refill(s), Pharmacy: [facility]/pharmacy #[id number], 1-2 tabs Oral Bedtime (once a day), PRN:as needed for nausea/vomiting Start Date: 07/09/16 Status: Ordered sertraline 100 mg oral tablet See Instructions, TAKE 2 TABLETS BY MOUTH DAILY, # 180 tabs, 1 Refill(s), [id number], TAKE 2 TABLETS BY MOUTH DAILY Start Date: 10/07/16 Status: Ordered Valium 10 mg oral tablet [...]
--- OUTSIDE RECORDS SUMMARY | 2016-12-20 11:26 | XMS REPORT | Referral Summary ---
Author Author [facility] Organization [facility] Address Unknown Phone Unavailable Care Team Providers Care Utility Manager Name Role Phone James Vega Primary Care Physician [phone] Encounter VC Date(s): 06/22/15 - 06/22/15 [facility] [address] [place] [id number] Discharge Diagnosis: Migraine headache without aura Discharge Disposition: 01-Home or Self Care Attending Physician: Kandi Fowler Admitting Physician: Kandi Fowler Vital Signs Most recent to 1 oldest [Reference Range]: Temperature Oral 37.2 degC [35.8-37.3 degC] (06/22/15 11:21 AM) Peripheral Pulse 79 bpm Rate [60-100 bpm] (06/22/15 11:21 AM) Blood Pressure 118/78 mmHg [90-140/60-90 mmHg] (06/22/15 11:21 AM) SpO2 99 % (06/22/15 11:21 AM) Problem List Condition Effective Dates Status [...] # 15 tabs, 0 Refill(s) Start Date: 05/10/15 Status: Ordered Ativan 0.5 mg oral tablet [...] Oral TID Start Date: 04/02/15 Status: Ordered Percocet 10/325 oral tablet 1 tabs, Oral, q6hr, as needed for pain, # 60 tabs, 0 Refill(s) Start Date: 05/10/15 Status: Ordered Saxenda 18 mg/3 mL subcutaneous solution 3 mg, SubCutaneous, Daily, # 15 mL, 5 Refill(s), Pharmacy: [facility] #[id number] , 3 mg SubCutaneous Daily,x30 days Start Date: 04/24/15 Stop Date: 10/21/15 Status: Ordered sertraline 50 mg oral tablet 100 mg 2 tabs, Oral, Daily, # 180 tabs, 3 Refill(s), Pharmacy: [facility] # 1944, 2 tabs Oral Daily Start Date: 05/10/15 Status: Ordered Results No data available for [...] Office Visit Note Author: Kandi Fowler Date: 06/22/15 Assessment/Plan 1.Migraine headache without aura Demerol 50 mg with promethazine 50 mg IM. Use oral Zofran PRN residual nausea (has that at home). Follow up in [facility]mediate [facility] over the weekend if no improvement, ED if worsening.
--- OUTSIDE RECORDS SUMMARY | 2016-12-20 11:26 | XMS REPORT | Continuity of Care Document ---
Author Author Amish Vega MD Ambulatory Address [address] [place] [address] Phone Care Team Providers Care Publicity Agent Name Role Phone Amish Vega PP Unavailable Kandi Fowler RP Unavailable Payers Payer name Insurance type Covered democrat ID Authorization(s) Unknown Problems Condition Effective Dates (start - stop) Clinical Status Bipolar 1 disorder, mixed - *Poor control Panic anxiety syndrome - *Fair Control Tattoo of skin - *Acute Fibromyalgia - Improved Bipolar affective disorder, current episode hypoma - *Chronic Mental confusion - *Worse Headache - *Acute Dizziness - *Acute Nausea And Vomiting - *Acute Visual disturbance - *Acute Dysarthria - *Acute Sinusitis, Acute - *Acute Follow-up examination, following other surgery - *Acute Adenosis, breast - *Acute Pain in joint involving shoulder region - *Chronic Lumbar disc herniation with myelopathy - *Symptomatic Backache - *Acute Bone pain - *Worse [...] Dosage Effective Dates (start - stop) Status Percocet 10 mg-325 mg tablet take 1 [...] BID PRN panic attacks 2013 - Active Bystolic 5 mg tablet take 1 tablet (5MG) by oral route every day 5 MG - Active Ambien 10 mg tablet take 1 tablet (10MG) by oral route every day at bedtime as needed 10 MG - Active 1-2 po HS PRN - [...] Height Weight Pulse Rate Blood Pressure Temperature /14:07:00 65.00 in 173.60 lbs 88 /min 112/76 mm[Hg] Procedures Procedure Date Unknown Encounters Encounter Location Date Patient Visit [address] Patient Visit [address] Patient Visit [address] Patient Visit [facility] Patient Visit [...] Patient Visit [facility] Patient [facility] Patient Visit [facility] Patient Visit [facility] Patient Visit [facility] Patient Visit [facility] Patient Visit [facility] Patient Visit [facility] Patient Visit [facility] Patient Visit [facility] Patient Visit [facility] Patient [facility] Patient Visit [facility] Patient Visit [facility] Patient Visit [facility] Patient Visit [facility] Patient Visit [facility] Patient Visit [facility] Patient [facility] Patient Visit [facility] Patient Visit [facility] Patient Visit [facility] Patient Visit [facility] Patient Visit [facility] Patient Visit [facility] Patient Visit [facility] Advance Directives Directive Effective Date Unknown
--- OUTSIDE RECORDS SUMMARY | 2016-12-20 11:26 | XMS REPORT | Referral Summary ---
Author Author [facility] Organization [facility] Address Unknown Phone Unavailable Care Team Providers Care Birth Attendant Name Role Phone James Vega Primary Care Physician [phone] Encounter VC Date(s): 02/27/15 - 02/27/15 [facility] Medicine [address] [place] [id number] Discharge Diagnosis: Headache, migraine Discharge Disposition: 01-Home or Self Care Attending Physician: Margot Snowden MD Admitting Physician: Amish Vega MD Referring Physician: Amish Vega MD Vital Signs [...] # 15 tabs, 0 Refill(s) Start Date: 08/14/15 Status: Ordered Ativan 0.5 mg oral tablet [...]
--- OUTSIDE RECORDS SUMMARY | 2016-12-20 11:26 | XMS REPORT | Continuity of Care Document ---
Author Author Amish Vega MD Ambulatory Address [address] [place] [address] Phone Care Team Providers Care Band Edger Name Role Phone Amish Vega PP Unavailable Kandi Fowler RP Unavailable Payers Payer name Insurance type Covered democrat ID Authorization(s) Unknown Problems Condition Effective Dates (start - stop) Clinical Status Backache - *Acute Tattoo of skin - *Acute Bipolar 1 [...] - * Acute Hot flashes - *Chronic Family History Family Member Diagnosis Age At [...] Height Weight Pulse Rate Blood Pressure Temperature /11:17:00 65.00 in 177.00 lbs 72 /min 112/70 mm[Hg] Procedures Procedure Date Unknown Encounters Encounter Location Date Patient Visit [address] Patient Visit [address] Patient Visit [address] Patient Visit [facility] Patient Visit [...] Patient Visit [facility] Patient Visit [facility] Patient Visit [facility] Patient Visit [facility] Patient Visit [facility] Patient Visit [facility] Patient Visit [facility] Patient Visit [facility] Patient Visit [facility] Patient Visit [facility] Patient Visit [facility] Patient Visit [facility] Patient Visit [facility] Patient Visit [facility] [...]
--- OUTSIDE RECORDS SUMMARY | 2016-12-20 11:26 | XMS REPORT | Referral Summary ---
Author Author [facility] Organization [facility] Address Unknown Phone Unavailable Care Team Providers Care Chief Meter Reader Name Role Phone James Vega Primary Care Physician [phone] Encounter VC GRAY [id number] Date(s): 09/17/16 - 09/17/16 [facility], [facility] Medicine [address] [place] [id number] Discharge Disposition: 01-Home or Self Care Attending Physician: Naa Dutton APRN Admitting Physician: Naa Dutton APRN Vital Signs Most recent to 1 oldest [Reference Range]: Peripheral Pulse 110 bpm Rate [60-100 bpm] *HI* (09/17/16 1:19 PM) Blood Pressure 115/75 mmHg [90-140/60-90 mmHg] (09/17/16 1:19 PM) SpO2 99 % (09/17/16 1:19 PM) Problem List Condition Effective Dates Status [...] Refill(s), called to pharmacy (Rx) Start Date: 08/26/16 Status: Ordered Bactrim DS 800 mg-160 mg oral tablet 1 tabs, Oral, BID, X 7 days, # 14 tabs, 0 Refill(s), [id number] Start Date: 09/17/16 Stop Date: 09/24/16 Status: Ordered cyclobenzaprine 10 mg oral tablet See Instructions, TAKE ONE TABLET BY MOUTH THREE TIMES DAILY, # 90 tabs, 0 Refill(s), [id number], TAKE ONE TABLET BY MOUTH THREE TIMES DAILY Start Date: 08/26/16 Status: Ordered Drisdol 50,000 intl units (1.25 mg) oral capsule See Instructions, 1 cap every other week x 3 months, # 6 Each, 0 Refill(s), Pharmacy: [facility] [id number] [facility], 1 cap every other week x 3 months Start Date: 04/30/16 Status: Ordered hydrOXYzine hydrochloride 50 mg oral tablet 50 mg 1 tabs, Oral, QID, itching, # 60 tabs, 5 Refill(s), Pharmacy: [facility] [id number] [facility], 1 tabs Oral QID,PRN:itching Start Date: 05/09/16 Status: Ordered Magic Mouthwash Magic Mouthwash, See Instructions, Benadryl Elixir 50mL, Viscous Lidocaine 2% 50 mL, Maalox 50 mL, Carafate Solution 50 mL Swish/Spit 5mL QID x10 days, # 200 mL, 0 Refill(s), Pharmacy: [facility] [id number] [facility], Benadryl Elixir 50mL, Viscous Lidocaine 2% 5... Start Date: 05/06/16 Status: Ordered Percocet 10/325 oral tablet 1 tabs, Oral, q6hr, as needed for pain, # 120 tabs, 0 Refill(s) Start Date: 09/09/16 Status: Ordered promethazine 50 mg oral tablet 1-2 tabs, Oral, Bedtime (once a day), as needed for nausea/vomiting, # 30 tabs, 0 Refill(s), [id number], 1-2 tabs Oral Bedtime (once a day), PRN:as needed for nausea/vomiting Start Date: 07/09/16 Status: Ordered sertraline 100 mg oral tablet See Instructions, TAKE 2 TABLETS BY MOUTH DAILY, # 60 tabs, 1 Refill(s), Pharmacy: [facility]/pharmacy #[id number], please be sure to fill 100mg script [...]
--- OUTSIDE RECORDS SUMMARY | 2016-12-20 11:27 | XMS REPORT | Referral Summary ---
Author Author [facility] Organization [facility] Address Unknown Phone Unavailable Care Team Providers Care Driver'S License Examiner Name Role Phone James Vega Primary Care Physician [phone] Encounter VC Date(s): 06/18/15 - 06/18/15 [facility] [address] [place] [id number] Discharge Disposition: 01-Home or Self Care Attending Physician: Margot Snowden MD Admitting Physician: Margot Snowden MD Vital Signs No data available for [...] a day) Start Date: 12/20/15 Status: Ordered Percocet 10/325 oral tablet 1 [...]
--- OUTSIDE RECORDS SUMMARY | 2016-12-20 11:27 | XMS REPORT | Referral Summary ---
Author Author [facility] Organization [facility] Address Unknown Phone Unavailable Care Team Providers Care Ship Unloader Name Role Phone James Vega Primary Care Physician [phone] Encounter VC Date(s): 09/18/15 - 09/18/15 [facility] [address] [place] [id number] Discharge Disposition: 01-Home or Self [...]
--- OUTSIDE RECORDS SUMMARY | 2016-12-20 11:27 | XMS REPORT | Referral Summary ---
Author Organization Unknown Address Unknown Phone Unavailable Care Team Providers Care Commissary Representative Name Role Phone James Vega Primary Care Physician [phone] Encounter VC GRAY [id number] Date(s): 09/22/14 - 09/22/14 [facility] E , [facility] Medicine [address] [place], [place] [address] Discharge Diagnosis: Dissecting folliculitis of scalp Discharge Disposition: Home or Self Care Attending Physician: Kandi Fowler Admitting Physician: Kandi Fowler Vital Signs Most recent to 1 oldest [Reference Range]: Peripheral Pulse 78 bpm Rate [60-100 bpm] (09/22/14 2:50 PM) Respiratory Rate 16 br/min [14-20 br/min] (09/22/14 2:50 PM) Blood Pressure 112/70 mmHg [90-140/60-90 mmHg] (09/22/14 2:50 PM) Problem List Condition Effective Dates Status Health Status Informant Allergy rhinitis/hay Active fever(Confirmed) Alopecia(Confirmed) Active Anxiety state Active (finding)(Confirmed) Hemorrhoids, Active internal, with bleeding(Confirmed) Depressed bipolar I Active disorder (disorder)(Confirmed ) External hemorrhoids Active without complication (disorder)(Confirmed ) Fibromyalgia(Confirm Active ed) Insomnia(Confirmed) Active Irritable bowel Active disease(Confirmed) Migraine Active headaches(Confirmed) Severe mixed bipolar Active I disorder without psychotic features (disorder)(Confirmed ) Allergies, Adverse Reactions, Alerts Substance Reaction Severity Status HYDROcodone Active lamoTRIgine rash Active nortriptyline Pt states-Heart Attack symptoms Active penicillin Hives Active Stadol Active Medications Ambien 10 mg oral tablet 0.5 tabs, Oral, Bedtime (once a day), as needed for sleep, # 15 tabs, 0 Refill(s ), called to pharmacy (Rx) Start Date: 09/15/14 Status: Ordered Bystolic 5 mg oral tablet 1 tabs, Oral, Daily, # 30 tabs, 6 Refill(s) Start Date: 02/08/14 Status: Ordered Bystolic 5 mg oral tablet 1 tabs, Oral, Daily, # 30 tabs, 0 Refill(s), Pharmacy: [facility] [id number], 1 tabs Oral Daily Start Date: 07/20/14 Status: Ordered cetirizine-pseudoePHEDrine 5 mg-120 mg oral tablet, extended release 1 tabs, Oral, BID, # 60 tabs, 0 Refill(s), called to pharmacy (Rx) Start Date: 03/23/14 Status: Ordered cyclobenzaprine 10 mg oral tablet 1 tabs, Oral, TID, # 90 tabs, 3 Refill(s), Pharmacy: [facility] [id number] , 1 tabs Oral TID Start Date: 03/13/14 Status: Ordered minocycline 100 mg oral capsule 1 caps, Oral, q12hr, X 14 days, # 28 caps, 0 Refill(s), Pharmacy: [facility] [id number], 1 caps Oral q12hr,x14 days Start Date: 09/22/14 Stop Date: 10/06/14 Status: Ordered predniSONE 20 mg oral tablet See Instructions, one po bid (am/noon) x 4 days then one po daily x 3 days with food, # 11 tabs, 0 Refill(s), Pharmacy: [facility] [id number], one po bid (am/noon) x 4 days then one po daily x 3 days; with food Special Instructions: one po bid (am/noon) x 4 days then one po daily x 3 days with food Start Date: 09/04/14 Status: Ordered promethazine 6.25 mg/5 mL oral syrup 5 mL, Oral, QID, as needed for nausea/vomiting, # 200 mL, 0 Refill(s), called to pharmacy (Rx) Start Date: 07/04/14 Status: Ordered Promethazine VC 6.25 mg-5 mg/5 mL oral syrup 5-10ml, Oral, q6hr, # 180 mL, 0 Refill(s), called to pharmacy (Rx) Start Date: 08/29/14 Status: Ordered sertraline 50 mg oral tablet See Instructions, TAKE 1 TABLET (50MG) BY ORAL ROUTE EVERY DAY, # 30 unknown unit, 4 Refill(s), [facility]Rx: [facility], TAKE 1 TABLET (50MG) BY ORAL ROUTE EVERY DAY Special Instructions: TAKE 1 TABLET (50MG) BY ORAL ROUTE EVERY DAY Start Date: 07/24/14 Status: Ordered Results No data available for [...] Office Visit Note Author: Kandi Fowler Date: 09/22/14 Assessment/Plan Dissecting folliculitis of scalp If not improving in 3-5 days will add steroid foam for scalp. Follow up 10 days if persists. Recommend medicated shampoo such as Selsun Blue. Orders: minocycline, 1 caps, Oral, q12hr, X 14 days, # 28 caps, 0 Refill(s), Pharmacy: [facility] [id number], 1 caps Oral q12hr,x14 days
--- OUTSIDE RECORDS SUMMARY | 2016-12-20 11:27 | XMS REPORT | Referral Summary ---
Author Author [facility] Organization [facility] Address Unknown Phone Unavailable Care Team Providers Care Lpn Private Duty Name Role Phone James Vega Primary Care Physician [phone] Encounter Date(s): 03/31/16 - 03/31/16 [facility], [facility] [address] [place] [id number]- Discharge Diagnosis: Bronchitis Discharge Disposition: 01-Home or Self Care Attending Physician: Amish Vega MD Admitting Physician: Amish Vega MD Vital Signs Most recent to 1 oldest [Reference Range]: Temperature Tympanic 37.2 degC [36.6-38.1 degC] (03/31/16 10:28 AM) Peripheral Pulse 86 bpm Rate [60-100 bpm] (03/31/16 10:28 AM) Respiratory Rate 18 br/min [14-20 br/min] (03/31/16 10:28 AM) Blood Pressure 112/70 mmHg [90-140/60-90 mmHg] (03/31/16 10:28 AM) SpO2 99 % (03/31/16 10:28 AM) Problem List Condition Effective Dates Status [...] THREE TIMES DAILY, # 90 tabs, eRx: [facility] [id number] [facility], TAKE ONE TABLET BY MOUTH THREE TIMES DAILY Start Date: 03/27/16 Status: Ordered Percocet 10/325 oral tablet 1 tabs, Oral, q6hr, as needed for pain, # 120 tabs, 0 Refill(s) Start Date: 03/05/16 Status: Ordered Promethazine with Codeine 6.25 mg-10 mg/5 mL oral syrup 5 mL, Oral, q4hr, as needed for cough, # 120 mL, 0 Refill(s) Start Date: 03/31/16 Status: Ordered sertraline 100 mg oral tablet 200 mg 2 tabs, Oral, Daily, # 60 tabs, 3 Refill(s), Pharmacy: [facility] # [id number], 2 tabs Oral Daily Start Date: 01/31/16 Status: Ordered Tessalon Perles 100 mg oral capsule 200 mg 2 caps, Oral, TID, as needed for cough, # 30 caps, 0 Refill(s), Pharmacy : [facility] [id number] [facility], 2 caps Oral TID,PRN:as needed for cough Start Date: 03/30/16 Stop Date: 04/30/16 Status: Ordered Valium 10 mg oral tablet [...] smoker Assessment and Plan Extracted from: Title: [facility] URI female Author: Amish Vega MD Date: 03/31/16 Impression and Plan Diagnosis Bronchitis ([id number], Discharge, Medical). Plan: Discussed symptomatic treatment including fluids, analgesics, antihistamines and antitussives as warranted. patient instructed to call if fever over 101F, purulent drainage, worsening, or significant changes in symptoms. Follow up for next routine physical as needed for other issues. Will prescribe Zithromax for patient in case they develop a fever of 101F or greater. Will prescribe promethazine-codeine for cough. Advised patient to call the office if any new or worsening symptoms occur.. Orders Orders (Selected) Outpatient Orders Ordered Office Visit Level 4 Est 39213: Prescriptions Prescribed Ambien 10 mg oral tablet: 5 mg=0.5 tabs, Oral, Bedtime (once a day), PRN: as needed for sleep, 15 tabs, 0 Refill(s) Promethazine with Codeine 6.25 mg-10 mg/5 mL oral syrup: 5 mL, Oral, q4hr, PRN: as needed for cough, 120 mL, 0 Refill(s) Completed Zithromax 250 mg oral tablet: 1 packets, Oral, Once, as directed on package labeling, 6 tabs, 0 Refill(s).
--- OUTSIDE RECORDS SUMMARY | 2016-12-20 11:27 | XMS REPORT | Referral Summary ---
Author Author [facility] Organization [facility] Address Unknown Phone Unavailable Care Team Providers Care File Conversion Operator Name Role Phone James Vega Primary Care Physician [phone] Encounter VC Date(s): 11/27/15 - 11/27/15 [facility] Medicine [address] [place] [id number] Discharge Diagnosis: Thoracolumbar back pain Discharge Disposition: 01-Home or Self Care Attending Physician: Kandi Fowler Admitting Physician: Kandi Fowler Referring Physician: Amish Vega MD Vital Signs Most recent to 1 oldest [Reference Range]: Temperature Oral 36.8 degC [35.8-37.3 degC] (11/27/15 11:25 AM) Peripheral Pulse 82 bpm Rate [60-100 bpm] (11/27/15 11:25 AM) Blood Pressure 115/68 mmHg [90-140/60-90 mmHg] (11/27/15 11:25 AM) SpO2 99 % (11/27/15 11:25 AM) Problem List Condition Effective Dates Status [...] Office Visit Note Author: Kandi Fowler Date: 11/27/15 Assessment/Plan 1.Thoracolumbar back pain Ultrasound performed. Recommend using Flexeril on her days off. Icy Hot. Continue TENS. Stretches BID and handouts were given. Follow-up in 1 week for any persistent pain. Ordered: Application Of A Modality To One Or More Areas; Ultrasound, Each 15 Minutes [id number]
--- OUTSIDE RECORDS SUMMARY | 2016-12-20 11:27 | XMS REPORT | Referral Summary ---
Author Author [facility] Organization [facility] Address Unknown Phone Unavailable Care Team Providers Care Physician/Ophthalmologist Name Role Phone James Vega Primary Care Physician [phone] Encounter VC Date(s): 08/07/15 - 08/07/15 [facility] Medicine [address] [place] [id number] Discharge Diagnosis: Headache Discharge Diagnosis: Breast lump Discharge Disposition: 01-Home or Self Care Attending Physician: Kandi Fowler Admitting Physician: Kandi Fowler Vital Signs Most recent to 1 oldest [Reference Range]: Peripheral Pulse 112 bpm Rate [60-100 bpm] *HI* (08/07/15 1:44 PM) Blood Pressure 120/82 mmHg [90-140/60-90 mmHg] (08/07/15 1:44 PM) Problem List Condition Effective Dates [...] Oral Daily Start Date: 05/10/15 Status: Ordered Valium 10 mg oral tablet [...]
--- OUTSIDE RECORDS SUMMARY | 2016-12-20 11:27 | XMS REPORT | Referral Summary ---
Author Organization Unknown Address Unknown Phone Unavailable Care Team Providers Care Medical Dermatologist Name Role Phone James Vega Primary Care Physician [phone] Encounter [facility] [id number] Date(s): 10/03/14 - 10/03/14 [facility], E [facility], [facility] [address] [place], [place] [address] Discharge Diagnosis: Eustachian tube dysfunction Discharge Diagnosis: Acute URI Discharge Disposition: Home or Self Care Attending Physician: Kandi Fowler Admitting Physician: Kandi Fowler Vital Signs Most recent to 1 oldest [Reference Range]: Temperature Oral 36.8 degC [35.8-37.3 degC] (10/03/14 10:02 AM) Peripheral Pulse 96 bpm Rate [60-100 bpm] (10/03/14 10:02 AM) Blood Pressure 110/76 mmHg [90-140/60-90 mmHg] (10/03/14 10:02 AM) Most recent to 1 oldest [Reference Range]: SpO2 97 % (10/03/14 10:02 AM) Problem List Condition Effective Dates Status [...] 1 tabs, Oral, Daily, # 30 tabs, 3 Refill(s), Pharmacy: [facility] [id number], 1 tabs Oral Daily Start Date: 09/29/14 Status: Ordered Bystolic 5 mg oral tablet 1 tabs, Oral, Daily, # 30 tabs, 6 Refill(s) Start Date: 02/08/14 Status: Ordered Bystolic 5 mg oral tablet 1 tabs, Oral, Daily, # 30 tabs, 0 Refill(s), Pharmacy: [facility] [id number], 1 tabs Oral Daily Start Date: 07/20/14 Status: Ordered cetirizine-pseudoePHEDrine 5 mg-120 mg oral tablet, extended release 1 tabs, Oral, BID, # 60 tabs, 0 Refill(s), called to pharmacy (Rx) Start Date: 03/23/14 Status: Ordered cyclobenzaprine 10 mg oral tablet 1 tabs, Oral, TID, # 90 tabs, 3 Refill(s), Pharmacy: [facility] [id number] , 1 tabs Oral TID Start Date: 03/13/14 Status: Ordered foam for head foam for head, 0 Refill(s) Start Date: 10/03/14 Status: Ordered minocycline 100 mg oral capsule 1 caps, Oral, q12hr, X 14 days, # 28 caps, 0 Refill(s), Pharmacy: [facility] [id number], 1 caps Oral q12hr,x14 days Start Date: 10/03/14 Stop Date: 10/17/14 Status: Ordered Nasonex 50 mcg/inh nasal spray 2 sprays, Nasal, BID, # 17 g, 2 Refill(s), Pharmacy: [facility] [id number] Start Date: 10/03/14 Status: Ordered Olux 0.05% topical foam 1 amparo, Topical, Daily, # 100 g, 0 Refill(s), Pharmacy: [facility] [id number] Start Date: 09/28/14 Stop Date: 01/04/15 Status: Ordered predniSONE 20 mg oral tablet See Instructions, one po bid (am/noon) x 4 days then one po daily x 3 days with food, # 11 tabs, 0 Refill(s), Pharmacy: [facility] [id number], one po bid (am/noon) x 4 days then one po daily x 3 days; with food Special Instructions: one po bid (am/noon) x 4 days then one po daily x 3 days with food Start Date: 09/04/14 Status: Ordered predniSONE 20 mg oral tablet 1 tabs, Oral, BID, X 5 days, # 10 tabs, 0 Refill(s), [id number], 1 tabs Oral BID,x5 days Start Date: 10/03/14 Stop Date: 10/08/14 Status: Ordered promethazine 6.25 mg/5 mL oral [...] # 30 unknown unit, 4 Refill(s), eRx: [facility], TAKE 1 TABLET (50MG) BY ORAL [...] Office Visit Note Author: Kandi Fowler Date: 10/03/14 Assessment/Plan Acute URI Minocycline. Eustachian tube dysfunction Nasonex, prednisone. Recheck 10 days PRN. Orders: minocycline, 1 caps, Oral, q12hr, X 14 days, # 28 caps, 0 Refill(s), Pharmacy: [facility] [id number], 1 caps Oral q12hr,x14 days mometasone nasal, 2 sprays, Nasal, BID, # 17 g, 2 Refill(s), Pharmacy: [facility] [id number] predniSONE, 1 tabs, Oral, BID, X 5 days, # 10 tabs, 0 Refill(s), Pharmacy: [facility] [id number], 1 tabs Oral BID,x5 days
--- OUTSIDE RECORDS SUMMARY | 2016-12-20 11:27 | XMS REPORT | Referral Summary ---
Author Author [facility] Organization [facility] Address Unknown Phone Unavailable Care Team Providers Care Press Tender Short Goods Name Role Phone James Vega Primary Care Physician [phone] Encounter VC Date(s): 06/18/15 - 06/18/15 [facility] Family Medicine [address] [place] [id number] Discharge Disposition: 01-Home or [...] Oral TID Start Date: 04/02/15 Status: Ordered Lidocaine Viscous 2% mucous membrane solution 0.1 g 5 mL, Topical, QIDACHS, Mix equal parts Benadryl Elixir, Maalox, Carafate solution and Viscous lidocaine to total 100 mL, # 100 mL, 2 Refill(s), Pharmacy : [facility] #[id number] Start Date: 05/10/15 Status: Ordered Maxalt-STUDENT LIAISON OFFICER 10 mg oral tablet, disintegrating 1 tabs, Oral, Daily, as needed for migraine headache, may repeat dose every 2 hours up to a maximum of 30 mg in 24 hours, # 12 tabs, 0 Refill(s), Pharmacy: [facility] #[id number], 1 tabs Oral Daily,PRN:as needed for migraine headache, Instr:may repeat d... Start Date: 12/15/14 Status: Ordered Percocet 10/325 oral tablet 1 [...]
--- OUTSIDE RECORDS SUMMARY | 2016-12-20 11:27 | XMS REPORT | Referral Summary ---
Author Organization Unknown Address Unknown Phone Unavailable Care Team Providers Care Perioperative Nurse Name Role Phone James Vega Primary Care Physician [phone] Encounter [facility] [id number] Date(s): 11/15/14 - 11/15/14 [facility], E , [facility] Medicine [address], [place] [address] Discharge Diagnosis: Sore throat Discharge Disposition: Home or Self Care Attending Physician: Carlo Mccauley Admitting Physician: Carlo Mccauley Vital Signs Most recent to 1 oldest [Reference Range]: Temperature Oral 37.1 degC [35.8-37.3 degC] (11/15/14 10:33 AM) Peripheral Pulse 76 bpm Rate [60-100 bpm] (11/15/14 10:33 AM) Respiratory Rate 18 br/min [14-20 br/min] (11/15/14 10:33 AM) Blood Pressure 118/76 mmHg [90-140/60-90 mmHg] (11/15/14 10:33 AM) Problem List Condition Effective Dates Status [...] for sleep, # 15 tabs, 0 Refill(s ) Start Date: 10/19/14 Status: Ordered Bystolic 5 mg oral tablet 1 tabs, Oral, Daily, # 30 tabs, 3 Refill(s), Pharmacy: [facility] [id number], 1 tabs Oral Daily Start Date: 09/29/14 Status: Ordered Bystolic 5 mg oral tablet 1 tabs, Oral, Daily, # 30 tabs, 6 Refill(s) Start Date: 02/08/14 Status: Ordered Bystolic 5 mg oral tablet 1 tabs, Oral, Daily, # 30 tabs, 0 Refill(s), Pharmacy: [facility] [id number], 1 tabs Oral Daily Start Date: 07/20/14 Status: Ordered cetirizine-pseudoePHEDrine 5 mg-120 mg oral tablet, extended release 1 tabs, Oral, BID, # 60 tabs, 0 Refill(s), called to pharmacy (Rx) Start Date: 03/23/14 Status: Ordered cyclobenzaprine 10 mg oral tablet 1 tabs, Oral, TID, # 90 tabs, 3 Refill(s), Pharmacy: [facility] [id number] , 1 tabs Oral TID Start Date: 03/13/14 Status: Ordered foam for head foam for head, 0 Refill(s) Start Date: 10/03/14 Status: Ordered Nasonex 50 mcg/inh nasal spray 2 sprays, Nasal, BID, # 17 g, 2 Refill(s), Pharmacy: [facility] [id number] Start Date: 10/03/14 Status: Ordered Olux 0.05% topical foam 1 amparo, Topical, Daily, # 100 g, 0 Refill(s), Pharmacy: [facility] [id number] Start Date: 09/28/14 Stop Date: 01/04/15 Status: Ordered Percocet 10/325 oral tablet 1 tabs, Oral, q6hr, as needed for pain, # 60 tabs, 0 Refill(s) Start Date: 10/11/14 Status: Ordered predniSONE 20 mg oral tablet See Instructions, one po bid (am/noon) x 4 days then one po daily x 3 days with food, # 11 tabs, 0 Refill(s), Pharmacy: [facility] [id number], one po bid (am/noon) x 4 days [...] # 30 unknown unit, 4 Refill(s), [facility], TAKE 1 TABLET (50MG) BY ORAL [...] Extracted from: Title: Office Visit Note Author: Carlo Mccauley Date: 11/15/14 Assessment/Plan Sore throat Reassurance given that this appears to be a viral infection and that antibiotics are not indicated at this time. May use tylenol or ibuprofen for symptomatic care. Drinnk plenty of fluids to stay well hydrated. If any questions, concerns, problems, no improvement over the next 5 days or temperature >101 occur please call or be seen. Ordered: Office Visit Level 3 Est 72316 Orders: Group A Strep Culture
--- OUTSIDE RECORDS SUMMARY | 2016-12-20 11:27 | XMS REPORT | Referral Summary ---
Author Author [facility] Organization [facility] Address Unknown Phone Unavailable Care Team Providers Care Casting Operator Helper Name Role Phone James Vega Primary Care Physician [phone] Encounter [facility] [id number] Date(s): 05/09/16 - 05/09/16 [facility], [facility] [address] [place] [id number] Discharge Diagnosis: Generalized pruritus Discharge Diagnosis: Headache Discharge Diagnosis: Adverse drug reaction Discharge Diagnosis: Oral aphthous ulcer Discharge Disposition: 01-Home or Self Care Attending Physician: Kandi Fowler Admitting Physician: Kandi Fowler Vital Signs Most recent to 1 oldest [Reference Range]: Temperature Oral 36.9 degC [35.8-37.3 degC] (05/09/16 11:26 AM) Peripheral Pulse 110 bpm Rate [60-100 bpm] *HI* (05/09/16 11:26 AM) Blood Pressure 114/68 mmHg [90-140/60-90 mmHg] (05/09/16 11:26 AM) SpO2 97 % (05/09/16 11:26 AM) Problem List Condition Effective Dates Status [...] THREE TIMES DAILY, # 90 tabs, eRx: [facility] [id number] [facility], TAKE ONE TABLET BY MOUTH THREE TIMES DAILY Start Date: 03/27/16 Status: Ordered Drisdol 50,000 intl units (1.25 mg) oral capsule See Instructions, 1 cap every other week x 3 months, # 6 Each, 0 Refill(s), Pharmacy: [facility] [id number] [facility], 1 cap every other week x 3 months Start Date: 04/30/16 Status: Ordered hydrOXYzine hydrochloride 50 mg oral tablet 50 mg 1 tabs, Oral, QID, itching, # 60 tabs, 5 Refill(s), Pharmacy: [facility] [id number] [facility], 1 tabs Oral QID,PRN:itching Start Date: 05/09/16 Status: Ordered Magic Mouthwash Magic Mouthwash, See Instructions, Benadryl Elixir 50mL, Viscous Lidocaine 2% 50 mL, Maalox 50 mL, Carafate Solution 50 mL Swish/Spit 5mL QID x10 days, # 200 mL, 0 Refill(s), Pharmacy: [facility] [address] [facility], Benadryl Elixir 50mL, Viscous Lidocaine 2% 5... Start Date: 05/06/16 Status: Ordered Percocet 10/325 oral tablet 1 tabs, Oral, q6hr, as needed for pain, # 120 tabs, 0 Refill(s) Start Date: 05/06/16 Status: Ordered predniSONE 20 mg oral tablet See Instructions, 1 tab PO TID x3d 1 tab po BID x3d 1 tab po daily x3d with food, # 18 tabs, 0 Refill(s), Pharmacy: [facility] [id number] [facility], 1 tab PO TID x3d; 1 tab po BID x3d; 1 tab po daily x3d; with food Start Date: 05/09/16 Status: Ordered sertraline 100 mg oral tablet 200 mg 2 tabs, Oral, Daily, # 60 tabs, 3 Refill(s), Pharmacy: [facility] # 1944, 2 tabs Oral Daily Start Date: 01/31/16 Status: Ordered Valium 10 mg oral tablet 10 mg 1 tabs, Oral, TID, as needed for anxiety, # 40 tabs, 0 Refill(s), called to pharmacy (Rx) Start Date: 04/01/16 Status: Ordered Zofran 8 mg oral tablet 8 mg 1 tabs, Oral, q8hr, as needed for nausea/vomiting, # 30 tabs, 2 Refill(s), Pharmacy: [facility] [id number] [facility], 1 tabs Oral q8hr,PRN:as needed for nausea/ vomiting Start Date: 05/01/16 Stop Date: 06/01/16 Status: Ordered Results No data available for [...] Office Visit Note Author: Kandi Fowler Date: 05/09/16 Assessment/Plan 1.Oral aphthous ulcer Likely due to Vicoprofen versus viral entity. Continue Magic mouthwash. Recheck in 5 days if not improved, emergency room over the weekend worsening. 2.Generalized pruritus Prednisone. Hydroxyzine. This may be exacerbated by Percocet and recommend holdingall narcoticpain medications for a minimum of 3 days. Do not restart until itching has resolved. 3.Headache Toradol 60 mg IM. 4.Adverse drug reaction We due to Vicoprofen. Orders: hydrOXYzine, 50 mg 1 tabs, Oral, QID, itching, # 60 tabs, 5 Refill(s) , Pharmacy: [facility] [id number] [facility], 1 tabs Oral QID,PRN:itching predniSONE, See Instructions, 1 tab PO TID x3d 1 tab po BID x3d 1 tab po daily x3d with food, # 18 tabs, 0 Refill(s), Pharmacy: [facility] [id number] [facility], 1 tab PO TID x3d; 1 tab po BID x3d; 1 tab po daily x3d; with food
--- OUTSIDE RECORDS SUMMARY | 2016-12-20 11:27 | XMS REPORT | Referral Summary ---
Author Organization Unknown Address Unknown Phone Unavailable Care Team Providers Care Counselor Manager Name Role Phone James Vega Primary Care Physician [phone] Encounter VC Date(s): 11/24/14 - 11/24/14 [facility], E , [facility] Medicine [address] [place], [place] [address] Discharge Diagnosis: Migraine Discharge Disposition: Home or Self Care Attending Physician: Amish Vega MD Admitting Physician: Amish Vega MD Vital Signs Most recent to 1 oldest [Reference Range]: Temperature Oral 36.4 degC [35.8-37.3 degC] (11/24/14 12:55 PM) Peripheral Pulse 68 bpm Rate [60-100 bpm] (11/24/14 12:55 PM) Respiratory Rate 20 br/min [14-20 br/min] (11/24/14 12:55 PM) Blood Pressure 118/60 mmHg [90-140/60-90 mmHg] (11/24/14 12:55 PM) Problem List Condition Effective Dates Status [...] Daily, # 30 tabs, 3 Refill(s), Pharmacy: [facility] [id number], 1 tabs Oral Daily Start Date: 09/29/14 Status: Ordered cetirizine-pseudoePHEDrine 5 mg-120 mg oral tablet, extended release 1 tabs, Oral, BID, # 60 tabs, 0 Refill(s), called to pharmacy (Rx) Start Date: 03/23/14 Status: Ordered cyclobenzaprine 10 mg oral tablet 1 tabs, Oral, TID, # 90 tabs, 3 Refill(s), Pharmacy: [facility] [id number] , 1 tabs Oral TID Start Date: 03/13/14 Status: Ordered Olux 0.05% topical foam 1 amparo, Topical, Daily, # 100 g, 0 Refill(s), Pharmacy: [facility] [id number] Start Date: 09/28/14 Stop Date: 01/04/15 Status: Ordered Percocet 10/325 oral tablet 1 tabs, Oral, q6hr, as needed for pain, # 60 tabs, 0 Refill(s) Start Date: 10/11/14 Status: Ordered predniSONE 20 mg oral tablet See Instructions, one po bid (am/noon) x 4 days then one po daily x 3 days with food, # 11 tabs, 0 Refill(s), Pharmacy: [facility] [id number], one po bid (am/noon) x 4 days then one po daily x 3 days; with food Special Instructions: one po bid (am/noon) x 4 days then one po daily x 3 days with food Start Date: 09/04/14 Status: Ordered Promethazine VC 6.25 mg-5 mg/5 mL oral syrup 5-10ml, Oral, q6hr, # 180 mL, 0 Refill(s), called to pharmacy (Rx) Start Date: 08/29/14 Status: Ordered sertraline 50 mg oral tablet See Instructions, TAKE 1 TABLET (50MG) BY ORAL ROUTE EVERY DAY, # 30 unknown unit, 5 Refill(s), eRx: [facility], TAKE 1 TABLET (50MG) BY ORAL ROUTE EVERY DAY Special Instructions: TAKE 1 TABLET (50MG) BY ORAL ROUTE EVERY DAY Start Date: 11/17/14 Status: Ordered Results No data available for [...] Extracted from: Title: Office Visit Note Author: Amish Vega MD Date: 11/24/14 Assessment/Plan 1.Migraine Toradol injection for salvage and she may continue to use her pain medication if needed. See back if not improved. Patient is instructed to notify or follow-up if not improving and to call if worsening Ordered: Office Visit Level 3 Est 80752
--- OUTSIDE RECORDS SUMMARY | 2016-12-20 11:27 | XMS REPORT | Referral Summary ---
Author Author [facility] Organization [facility] Address Unknown Phone Unavailable Care Team Providers Care Principal Gifts Officer Name Role Phone James Vega Primary Care Physician [phone] Encounter VC Date(s): 05/01/15 - 05/01/15 [facility] [address] [place] [id number] Discharge Diagnosis: Temporomandibular joint (TMJ) pain Discharge Disposition: 01-Home or Self Care Attending Physician: Carlo Mccauley Admitting Physician: Carlo Mccauley Referring Physician: Carlo Mccauley Vital Signs Most recent to 1 oldest [Reference Range]: Temperature Oral 36.2 degC [35.8-37.3 degC] (05/01/15 10:30 AM) Peripheral Pulse 72 bpm Rate [60-100 bpm] (05/01/15 10:30 AM) Respiratory Rate 16 br/min [14-20 br/min] (05/01/15 10:30 AM) Blood Pressure 100/70 mmHg [90-140/60-90 mmHg] (05/01/15 10:30 AM) Problem List Condition Effective Dates Status [...] Office Visit Note Author: Carlo Mccauley Date: 05/01/15 Assessment/Plan 1.Temporomandibular joint (TMJ) pain Suggest getting fit for bite guard by her Dentist. Avoid chewing gum. Chew food more on right side. If any questions, concerns, problems or no improvement is noted please call or follow- up. Ordered: Office Visit Level 3 Est [id number]
--- OUTSIDE RECORDS SUMMARY | 2016-12-20 11:28 | XMS REPORT | Referral Summary ---
Author Author [facility] Organization [facility] Address Unknown Phone Unavailable Care Team Providers Care Universal Winding Machine Operator Name Role Phone James Vega Primary Care Physician [phone] Encounter VC Date(s): 02/12/16 - 02/12/16 [facility] Medicine [address] [place] [id number] Discharge Diagnosis: Migraine headaches Discharge Disposition: 01-Home or Self Care Attending Physician: Kandi Fowler Admitting Physician: Kandi Fowler Referring Physician: Amish Vega MD Vital Signs Most recent to 1 oldest [Reference Range]: Peripheral Pulse 94 bpm Rate [60-100 bpm] (02/12/16 9:59 AM) Respiratory Rate 16 br/min [14-20 br/min] (02/12/16 9:59 AM) Blood Pressure 124/70 mmHg [90-140/60-90 mmHg] (02/12/16 9:59 AM) SpO2 99 % (02/12/16 9:59 AM) Problem List Condition Effective Dates Status [...] # 15 tabs, 0 Refill(s) Start Date: 02/11/16 Status: Ordered cyclobenzaprine 10 mg oral tablet [...] Office Visit Note Author: Kandi Fowler Date: 02/12/16 Assessment/Plan 1.Migraine headaches Demerol 50 mg with Promethazine 50 mg IM. F/U in 24 hours if not improved. Continue oral hydration, rest. Ordered: meperidine, 50 mg, IntraMuscular, Once, Order Duration: 60 days, First Dose: 11:00:00 CDT, Stop Date: 02/12/16 11:00:00 CDT, Form: Injection promethazine, 50 mg, IntraMuscular, Once, First Dose: 02/12/16 11:00:00 CDT, Stop Date: 02/12/16 11:00:00 CDT Orders: zolpidem, 5 mg 0.5 tabs, Oral, Bedtime (once a day), as needed for sleep, # 15 tabs, 0 Refill(s)
--- OUTSIDE RECORDS SUMMARY | 2016-12-20 11:28 | XMS REPORT | Continuity of Care Document ---
Author Author [facility] Organization [facility] Address Unknown Phone Unavailable Allergies Active Description Code Type Severity Reaction Onset Reported/Identified Relationship to Patient Clinical Status Yes MONITOR JELL Drug Allergy Mild ITCHING 07/16/2011 Yes lamotrigine Drug Allergy Moderate DRESS SYNDROME/RASH 11/18/2013 Yes Penicillins Penicillins Drug Allergy Mild HIVES 11/18/2013 Yes ULTRA SOUND GEL ULTRA SOUND GEL Drug Allergy Mild ITCHING 11/18/2013 Yes butorphanol tartrate butorphanol tartrate Drug Allergy Unknown tongue swelling? 11/18/2013 Yes LAMOTROGINE LAMOTROGINE Drug Allergy Severe IN [facility] 3 [facility] FOR RASH 11/22/2013 Yes amitriptyline amitriptyline Drug Allergy Unknown HEART RACES 11/22/2013 Yes MORPHINE MORPHINE Drug Allergy Unknown ITCHY 11/22/2013 Medications Problems Date Dx Coded Attending Type Code Diagnosis Diagnosed By 08/08/2012 Shirley Bradshaw MD 648.93 OTH CURR COND-ANTEPARTUM 10/25/2012 Shirley Bradshaw MD 664.01 DEL W 1 DEG LACERAT-DEL 10/25/2012 Shirley Bradshaw MD V22.1 SUPERVIS OTH NORMAL PREG 10/25/2012 Shirley Bradshaw MD V27.0 DELIVER-SINGLE LIVEBORN 02/20/2013 Gabino Heller MD 079.99 VIRAL INFECTION NOS 02/20/2013 Gabino Heller MD 083.9 RICKETTSIOSIS NOS 02/20/2013 Gabino Heller MD 276.51 DEHYDRATION 02/20/2013 Gabino Heller MD 276.8 HYPOPOTASSEMIA 02/20/2013 Gabino Heller MD 287.5 THROMBOCYTOPENIA NOS 02/20/2013 Gabino Heller MD 296.80 BIPOLAR DISORDER, UNSPECIFIED 02/20/2013 Gabino Heller MD 300.00 ANXIETY STATE NOS 02/20/2013 Gabino Heller MD 729.1 MYALGIA AND MYOSITIS NOS 02/20/2013 Gabino Heller MD 780.60 FEVER, UNSPECIFIED 02/20/2013 Gabino Heller MD 782.1 NONSPECIF SKIN ERUPT NEC 02/20/2013 Gabino Heller MD E947.9 ADV EFF MEDICINAL NOS 11/22/2013 Darek Romo MD 296.20 DEPRESS DISORDER-UNSPEC 11/22/2013 Darek Romo MD 300.00 ANXIETY STATE NOS 11/22/2013 Darek Romo MD 722.10 LUMBAR DISC DISPLACEMENT 11/22/2013 Darek Romo MD 724.9 BACK DISORDER NOS 11/22/2013 Darek Romo MD 729.2 NEURALGIA/NEURITIS NOS 11/22/2013 Darek Romo MD V14.5 HX-NARCOTIC ALLERGY 11/22/2013 Darek Romo MD 722.10 LUMBAR DISC DISPLACEMENT Procedures Code Description Performed By Performed On 73.4 MEDICAL INDUCTION LABOR Shirley Bradshaw MD 10/25/2012 75.69 REPAIR OB LACERATION NEC Shirley Bradshaw MD 10/25/2012 17.42 LAPAROSCOPIC ROBOTIC ASSISTED PROCEDURE Shirley Bradshaw MD 04/18/2013 68.41 LAPAROSCOPIC TOTAL ABDOMINAL HYSTERECTOMY Shirley Bradshaw MD 04/18/2013 80.51 EXCISION INTERVERT DISC Darek Romo MD 11/22/2013 81.06 LUMBAR LUMBOSACRAL FUSION OF ANTERIOR COLUMN/MICHELL Darek Romo MD 11/22/2013 81.62 FUSION/REFUS OF 2-3 VERTEBRAE Darek Romo MD 11/22/2013 84.51 INSERTION OF INTERBODY SPINAL FUSION DEVICE Darek Romo MD 11/22/2013 Results Test Result Range CBC - 08/08/12 21:49 MEAN CELL HGB 30.1 pg 27.0-33.0 MEAN CELL HGB CONCENTRATION 35.0 g/dL 32.0-37.0 MEAN CELL VOLUME 86.0 fl 80.0-100.0 RED BLOOD CELL 3.85 m/cumm 4.00-6.00 RED CELL DISTRIBUTION WIDTH 12.7 % 11.0- 15.6 WHITE BLOOD CELL 8.5 k/cumm 5.0-10.0 HEMOGLOBIN 11.6 gm/dL 12.0-16.0 HEMATOCRIT 33.1 % 37.0-47.0 PLATELET COUNT 193 k/cumm 150-400 [facility] - 08/08/12 21:49 POTASSIUM 3.5 mmol/L 3.5-5.3 EST GFR (MDRD) > 60 mL/min > 59 ANION GAP 8 mmol/L 5-15 EST CrCl (CG) > 60 mL/min > 59 GLUCOSE 68 mg/dL 70-99 CALCIUM 8.1 mg/dL 8.5-10.1 BLOOD UREA NITROGEN 8 mg/dL 7-20 CREATININE 0.5 mg/dL 0.6-1.0 SODIUM 139 mmol/L 135-148 CHLORIDE 107 mmol/L 98-110 AST/SGOT 10 Units/L 10-37 ALT/SGPT 11 Units/L < 66 CARBON DIOXIDE 24 mmol/L 21-32 TOTAL PROTEIN 6.0 gm/dL 6.4-8.2 ALBUMIN 2.8 gm/dL 3.4-5.0 BILI TOTAL 0.3 mg/dL 0.0-1.0 ALKALINE PHOSPHATASE TOTAL 61 Units/L 50- 136 CBC - 10/25/12 07:45 MEAN CELL HGB 28.5 pg 27.0-33.0 MEAN CELL HGB CONCENTRATION 33.7 g/dL 32.0-37.0 MEAN CELL VOLUME 84.4 fl 80.0-100.0 RED BLOOD CELL 3.97 m/cumm 4.00-6.00 RED CELL DISTRIBUTION WIDTH 13.6 % 11.0- 15.6 WHITE BLOOD CELL 10.4 k/cumm 5.0-10.0 HEMOGLOBIN 11.3 gm/dL 12.0-16.0 HEMATOCRIT 33.5 % 37.0-47.0 PLATELET COUNT 183 k/cumm 150-400 HEPATIC FUNCTION PANEL - 02/18/13 13:10 BILI UNCONJUGATED 0.5 mg/dL 0.0-0.7 AST/SGOT 31 Units/L 10-37 ALT/SGPT 37 Units/L < 66 TOTAL PROTEIN 7.5 gm/dL 6.4-8.2 ALBUMIN 3.8 gm/dL 3.4-5.0 BILI TOTAL 0.6 mg/dL 0.0-1.0 ALKALINE PHOSPHATASE TOTAL 92 Units/L 50- 136 BILI CONJUGATED 0.1 mg/dL 0.0-0.3 UA MICROSCOPIC - 02/18/13 13:10 UA RBC 0 rbc/hpf 0 - 3 UA VOLUME FOR EXAM 12.0 mL (12mL STD) UA WBC 0 wbc/hpf 0 - 5 BLOOD CULTURE - 02/18/13 13:10 Uncategorized BLOOD CULTURE - 02/18/13 13:10 Uncategorized CHEM/HEM PROFILE-BEDSIDE - 02/18/13 13:16 POTASSIUM 3.4 mmol/L 3.5-5.3 METHOD Bedside ANION GAP 16 mmol/L 10-20 METHOD Bedside GLUCOSE 93 mg/dL 70-99 BLOOD UREA NITROGEN 11 mg/dL 7-20 CREATININE 0.9 mg/dL 0.6-1.0 HEMOGLOBIN 11.2 gm/dL 12.0-16.0 HEMATOCRIT 33.0 % 37.0-47.0 SODIUM 140 mmol/L 135-148 CHLORIDE 102 mmol/L 98-110 CARBON DIOXIDE 26 mmol/L 21-32 CALCIUM IONIZED 4.5 mg/dL 4.5-5.[address]/DIFF - 02/18/13 14:40 CSF APPEARANCE CLEAR CLEAR CSF COLOR COLORLESS COLORLESS CSF RBC 2 #/cumm 0-5 CSF TUBE # #3 CSF VOLUME 8.0 mL CSF WBC 0 #/cumm 0-5 CSF TOTAL PROTEIN - 02/18/13 14:40 CSF TOTAL PROTEIN 43 mg/dL 15-45 CSF GLUCOSE - 02/18/13 14:40 CSF GLUCOSE 78 mg/dL 40-70 GRAM STAIN - 02/18/13 14:40 Uncategorized RNA ENTEROVIRUS QUAL - 02/18/13 14:40 Uncategorized RENAL FUNCTION PANEL - 02/19/13 12:50 POTASSIUM 3.4 mmol/L 3.5-5.3 EST GFR (MDRD) > 60 mL/min > 59 ANION GAP 8 mmol/L 5-15 EST CrCl (CG) > 60 mL/min > 59 GLUCOSE 101 mg/dL 70-99 CALCIUM 8.1 mg/dL 8.5-10.1 BLOOD UREA NITROGEN 10 mg/dL 7-20 CREATININE 0.9 mg/dL 0.6-1.0 SODIUM 141 mmol/L 135-148 CHLORIDE 106 mmol/L 98-110 CARBON DIOXIDE 27 mmol/L 21-32 ALBUMIN 3.3 gm/dL 3.4-5.0 PHOSPHORUS 3.8 mg/dL 2.5-4.9 MAGNESIUM - 02/19/13 12:50 MAGNESIUM 1.9 mg/dL 1.8-2.4 THYROID STIM HORMONE (TSH) - 02/19/13 12:50 THYROID STIM HORMONE (TSH) 2.10 uIU/mL 0.34-4.82 C REACTIVE PROTEIN - 02/19/13 12:50 C REACTIVE PROTEIN 24.0 mg/L < 8.0 CBC W/DIFF - 02/19/13 12:50 BASOPHIL # 0.0 k/cumm 0.0-0.2 BASOPHIL % 1 % 0-1 COMMENT REVIEWED EOSINOPHIL # 0.2 k/cumm 0.1-0.5 EOSINOPHIL % 11 % 2-4 GRANULOCYTE # 1.0 k/cumm 2.0-9.0 GRANULOCYTE % 53 % 50-75 LYMPHOCYTE # 0.6 k/cumm 1.0-4.0 LYMPHOCYTE % 29 % 20-30 MEAN CELL HGB 28.0 pg 27.0-33.0 MEAN CELL HGB CONCENTRATION 33.5 g/dL 32.0-37.0 MEAN CELL VOLUME 83.5 fl 80.0-100.0 MONOCYTE # 0.1 k/cumm 0.1-1.0 MONOCYTE % 7 % 4-6 RED BLOOD CELL 3.93 m/cumm 4.00-6.00 RED CELL DISTRIBUTION WIDTH 13.5 % 11.0- 15.6 WHITE BLOOD CELL 1.9 k/cumm 5.0-10.0 HEMOGLOBIN 11.0 gm/dL 12.0-16.0 HEMATOCRIT 32.8 % 37.0-47.0 PLATELET COUNT 88 k/cumm 150-400 SED RATE - 02/19/13 12:50 SED RATE 15 mm/hr 0-15 INFECTIOUS MONO SCREEN - 02/19/13 12:50 INFECTIOUS MONO SCREEN NEGATIVE NEGATIVE AB DNA DOUBLE STRAND - 02/19/13 12:50 AB DNA DOUBLE STRAND < 1 IU/mL 0-9 AB HIV 1 2 - 02/19/13 12:50 AB HIV 1 2 NEGATIVE NEGATIVE AB ANTI NUCLEAR - 02/19/13 12:50 BERNARDINO NEGATIVE Negative STREP THROAT SCREEN (GROUP A) - STREP THROAT CULTURE (GROUP A) - 02/19/13 13: 25 Uncategorized UR TEST - 02/19/13 14:33 UR TEST NEGATIVE NEGATIVE URINALYSIS WITH MICROSCOPIC - 02/19/13 14:33 UA LEUKOCYTE ESTERASE DIPSTICK NEGATIVE NEGATIVE UA NITRITE DIPSTICK NEGATIVE NEGATIVE UA PROTEIN DIPSTICK NEGATIVE NEGATIVE UA GLUCOSE DIPSTICK NEGATIVE NEGATIVE UA KETONE DIPSTICK NEGATIVE NEGATIVE UA UROBILINOGEN DIPSTICK NORMAL NORMAL UA BILIRUBIN DIPSTICK NEGATIVE NEGATIVE UA BLOOD DIPSTICK 1+ NEGATIVE UA EPITHELIAL CELLS 2+ epi/hpf 0 - 1+ UA MUCUS 2+ NEG TO 1+ UA RBC 3-5 rbc/hpf 0 - 3 UA VOLUME FOR EXAM 12.0 mL (12mL STD) UA WBC 0-1 wbc/hpf 0 - 5 UA SPECIFIC GRAVITY 1.017 1.015-1.025 UR PH 6.5 5.0-7.0 GONORRHOEA DNA BY PCR - CHLAMYDIA DNA BY PCR - 02/19/13 14:33 Uncategorized LABORATORY MISCELLANEOUS TEST - 02/21/13 06:13 PERFORMING LAB LABORATORY CADEN. LABORATORY TEST RESULT TEST NOT PERFORMED LABORATORY TEST RICKETTSIAL Ab PANEL METABOLIC PANEL, COMPREHN - 02/21/13 06:16 POTASSIUM 4.0 mmol/L 3.5-5.3 EST GFR (MDRD) > 60 mL/min > 59 ANION GAP 6 mmol/L 5-15 EST CrCl (CG) > 60 mL/min > 59 GLUCOSE 134 mg/dL 70-99 CALCIUM 8.8 mg/dL 8.5-10.1 BLOOD UREA NITROGEN 11 mg/dL 7-20 CREATININE 0.8 mg/dL 0.6-1.0 SODIUM 141 mmol/L 135-148 CHLORIDE 106 mmol/L 98-110 AST/SGOT 40 Units/L 10-37 ALT/SGPT 76 Units/L < 66 CARBON DIOXIDE 29 mmol/L 21-32 TOTAL PROTEIN 6.6 gm/dL 6.4-8.2 ALBUMIN 3.3 gm/dL 3.4-5.0 BILI TOTAL 0.4 mg/dL 0.0-1.0 ALKALINE PHOSPHATASE TOTAL 146 Units/L 50 -136 CBC W/DIFF - 02/21/13 06:16 EOSINOPHIL # 0.0 k/cumm 0.1-0.5 EOSINOPHIL % 2 % 2-4 GRANULOCYTE # 1.4 k/cumm 2.0-9.0 GRANULOCYTE % 71 % 50-75 LYMPHOCYTE # 0.5 k/cumm 1.0-4.0 LYMPHOCYTE % 25 % 20-30 MEAN CELL HGB 28.0 pg 27.0-33.0 MEAN CELL HGB CONCENTRATION 33.6 g/dL 32.0-37.0 MEAN CELL VOLUME 83.3 fl 80.0-100.0 MONOCYTE # 0.0 k/cumm 0.1-1.0 MONOCYTE % 2 % 4-6 RED BLOOD CELL 3.89 m/cumm 4.00-6.00 RED CELL DISTRIBUTION WIDTH 13.4 % 11.0- 15.6 WHITE BLOOD CELL 2.0 k/cumm 5.0-10.0 HEMOGLOBIN 10.9 gm/dL 12.0-16.0 HEMATOCRIT 32.4 % 37.0-47.0 PLATELET COUNT 135 k/cumm 150-400 RETICULOCYTE COUNT - 02/21/13 06:16 IMMATURE FRACTION 7.7 % 5-22 ABSOLUTE RETIC COUNT 39.7 k/cumm 20.0- 180.0 PERCENT RETIC 1.0 % 0.5-3.0 AB CYTOMEGALOVIRUS IGM - 02/21/13 06:16 AB CYTOMEGALOVIRUS IGM 0.4 index 0.0-0.8 AB EHRLICHIA CHAFFEENSIS - 02/21/13 06:16 AB EHRLICHIA CHAFFEENSIS IGG <64 <64 AB EHRLICHIA CHAFFEENSIS IGM <20 <20 INTERPRETATION NEGATIVE NEGATIVE AB ANAPLASMA PHAGOCYTOPHILUM - 02/21/13 06:16 AB HUMAN GRANULOCYTIC EHR IGG <64 <64 AB HUMAN GRANULOCYTIC EHR IGM <20 <20 INTERPRETATION NEGATIVE NEGATIVE AB CAYET[place]O MT SPOTTED FEVER - 02/21/13 06:16 INTERPRETATION NEGATIVE NEGATIVE AB RMSF IGG <64 <64 AB RMSF IGM <64 <64 AB [facility] A VIRUS PROFILE - 02/21/13 13:34 AB [facility] A10 VIRUS <8 NEG: < 8 AB [place] A16 VIRUS <8 NEG: < 8 AB [place] A2 VIRUS <8 NEG: < 8 AB [place] A4 VIRUS <8 NEG: < 8 AB [place] A7 VIRUS <8 AB [place] A9 VIRUS <8 NEG: < 8 AB [facility] B VIRUS PROFILE - 02/21/13 13:34 AB [place] B1 VIRUS <8 NEG: < 8 AB [place] B2 VIRUS <8 NEG: < 8 AB [place] B3 VIRUS <8 NEG: < 8 AB [facility] B4 VIRUS <8 NEG: < 8 AB [facility] B5 VIRUS <8 NEG: < 8 AB [place] B6 VIRUS <8 NEG: < 8 CBC W/DIFF - 02/22/13 06:00 GRANULOCYTE # 4.5 k/cumm 2.0-9.0 GRANULOCYTE % 83 % 50-75 LYMPHOCYTE # 0.7 k/cumm 1.0-4.0 LYMPHOCYTE % 13 % 20-30 MEAN CELL HGB 27.8 pg 27.0-33.0 MEAN CELL HGB CONCENTRATION 32.8 g/dL 32.0-37.0 MEAN CELL VOLUME 84.6 fl 80.0-100.0 MONOCYTE # 0.2 k/cumm 0.1-1.0 MONOCYTE % 4 % 4-6 RED BLOOD CELL 3.96 m/cumm 4.00-6.00 RED CELL DISTRIBUTION WIDTH 13.1 % 11.0- 15.6 WHITE BLOOD CELL 5.5 k/cumm 5.0-10.0 HEMOGLOBIN 11.0 gm/dL 12.0-16.0 HEMATOCRIT 33.5 % 37.0-47.0 PLATELET COUNT 179 k/cumm 150-400 METABOLIC PANEL, COMPREHN - 02/22/13 06:00 POTASSIUM 4.0 mmol/L 3.5-5.3 EST GFR (MDRD) > 60 mL/min > 59 ANION GAP 9 mmol/L 5-15 EST CrCl (CG) > 60 mL/min > 59 GLUCOSE 147 mg/dL 70-99 CALCIUM 8.6 mg/dL 8.5-10.1 BLOOD UREA NITROGEN 18 mg/dL 7-20 CREATININE 0.9 mg/dL 0.6-1.0 SODIUM 143 mmol/L 135-148 CHLORIDE 108 mmol/L 98-110 AST/SGOT 17 Units/L 10-37 ALT/SGPT 55 Units/L < 66 CARBON DIOXIDE 26 mmol/L 21-32 TOTAL PROTEIN 6.4 gm/dL 6.4-8.2 ALBUMIN 3.3 gm/dL 3.4-5.0 BILI TOTAL 0.3 mg/dL 0.0-1.0 ALKALINE PHOSPHATASE TOTAL 128 Units/L 50 -136 AB COXIELLA BURNETII (Q FEVER) - 02/22/13 06:15 AB COXIELLA BURNETTI PHASE I NEGATIVE < 16 AB COXIELLA BURNETTI PHASE II NEGATIVE < 16 CBC - 04/18/13 13:05 MEAN CELL HGB 28.7 pg 27.0-33.0 MEAN CELL HGB CONCENTRATION 33.8 g/dL 32.0-37.0 MEAN CELL VOLUME 85.0 fl 80.0-100.0 RED BLOOD CELL 4.28 m/cumm 4.00-6.00 RED CELL DISTRIBUTION WIDTH 13.2 % 11.0- 15.6 WHITE BLOOD CELL 3.8 k/cumm 5.0-10.0 HEMOGLOBIN 12.3 gm/dL 12.0-16.0 HEMATOCRIT 36.4 % 37.0-47.0 PLATELET COUNT 202 k/cumm 150-400 TEST, SERUM - 04/18/13 13:05 TEST, SERUM NEGATIVE NEGATIVE METABOLIC PANEL, BASIC - 04/18/13 13:05 POTASSIUM 4.1 mmol/L 3.5-5.3 EST GFR (MDRD) > 60 mL/min > 59 ANION GAP 9 mmol/L 5-15 EST CrCl (CG) > 60 mL/min > 59 GLUCOSE 94 mg/dL 70-99 CALCIUM 8.7 mg/dL 8.5-10.1 BLOOD UREA NITROGEN 10 mg/dL 7-20 CREATININE 0.8 mg/dL 0.6-1.0 SODIUM 142 mmol/L 135-148 CHLORIDE 107 mmol/L 98-110 CARBON DIOXIDE 26 mmol/L 21-32 CBC - 11/18/13 11:33 MEAN CELL HGB 29.9 pg 27.0-33.0 MEAN CELL HGB CONCENTRATION 34.4 g/dL 32.0-37.0 MEAN CELL VOLUME 87.1 fl 80.0-100.0 RED BLOOD CELL 4.48 m/cumm 4.00-6.00 RED CELL DISTRIBUTION WIDTH 11.9 % 11.0- 15.6 WHITE BLOOD CELL 5.5 k/cumm 5.0-10.0 HEMOGLOBIN 13.4 gm/dL 12.0-16.0 HEMATOCRIT 39.0 % 37.0-47.0 PLATELET COUNT 203 k/cumm 150-400 URINALYSIS, ROUTINE - 11/18/13 11:33 UA LEUKOCYTE ESTERASE DIPSTICK NEGATIVE NEGATIVE UA NITRITE DIPSTICK NEGATIVE NEGATIVE UA PROTEIN DIPSTICK NEGATIVE NEGATIVE UA GLUCOSE DIPSTICK NEGATIVE NEGATIVE UA KETONE DIPSTICK NEGATIVE NEGATIVE UA UROBILINOGEN DIPSTICK NORMAL NORMAL UA BILIRUBIN DIPSTICK NEGATIVE NEGATIVE UA BLOOD DIPSTICK NEGATIVE NEGATIVE UA VOLUME FOR EXAM 12.0 mL (12mL STD) UA SPECIFIC GRAVITY 1.020 1.015-1.025 UR PH 5.0 5.0-7.0 METABOLIC PANEL, COMPREHN - 11/18/13 11:33 POTASSIUM 3.9 mmol/L 3.5-5.3 EST GFR (MDRD) > 60 mL/min > 59 ANION GAP 3 mmol/L 5-15 GLUCOSE 91 mg/dL 70-99 CALCIUM 9.5 mg/dL 8.5-10.1 BLOOD UREA NITROGEN 16 mg/dL 7-20 CREATININE 0.8 mg/dL 0.6-1.0 SODIUM 141 mmol/L 135-148 CHLORIDE 108 mmol/L 98-110 AST/SGOT 13 Units/L 10-37 ALT/SGPT 21 Units/L < 66 CARBON DIOXIDE 30 mmol/L 21-32 TOTAL PROTEIN 7.6 gm/dL 6.4-8.2 ALBUMIN 4.5 gm/dL 3.4-5.0 BILI TOTAL 0.5 mg/dL 0.0-1.0 ALKALINE PHOSPHATASE TOTAL 60 IU/L 45- 117 PROTHROMBIN TIME WITH INR - 11/18/13 11:33 INTERNATIONAL NORMAL RATIO 1.0 0.9-1.1 PROTHROMBIN TIME 10.7 sec 9.3-12.2 PARTIAL THROMBOPLASTIN TIME - 11/18/13 11:33 PARTIAL THROMBOPLASTIN TIME 33 sec 24-36 MRSA SURVEILLANCE SCREEN - 11/18/13 11:33 Uncategorized URINALYSIS, ROUTINE - 11/22/13 10:20 UA LEUKOCYTE ESTERASE DIPSTICK TRACE NEGATIVE UA NITRITE DIPSTICK NEGATIVE NEGATIVE UA PROTEIN DIPSTICK NEGATIVE NEGATIVE UA GLUCOSE DIPSTICK NEGATIVE NEGATIVE UA KETONE DIPSTICK NEGATIVE NEGATIVE UA UROBILINOGEN DIPSTICK NORMAL NORMAL UA BILIRUBIN DIPSTICK NEGATIVE NEGATIVE UA BLOOD DIPSTICK NEGATIVE NEGATIVE UA VOLUME FOR EXAM 10.0 mL (12mL STD) UA SPECIFIC GRAVITY 1.017 1.015-1.025 UR PH 7.0 5.0-7.0 METABOLIC PANEL, BASIC - 11/23/13 05:15 POTASSIUM 4.0 mmol/L 3.5-5.3 EST GFR (MDRD) > 60 mL/min > 59 ANION GAP 8 mmol/L 5-15 EST CrCl (CG) > 60 mL/min > 59 GLUCOSE 136 mg/dL 70-99 CALCIUM 8.7 mg/dL 8.5-10.1 BLOOD UREA NITROGEN 9 mg/dL 7-20 CREATININE 0.6 mg/dL 0.6-1.0 SODIUM 140 mmol/L 135-148 CHLORIDE 106 mmol/L 98-110 CARBON DIOXIDE 26 mmol/L 21-32 CBC - 11/23/13 05:15 MEAN CELL HGB 29.9 pg 27.0-33.0 MEAN CELL HGB CONCENTRATION 34.5 g/dL 32.0-37.0 MEAN CELL VOLUME 86.7 fl 80.0-100.0 RED BLOOD CELL 4.51 m/cumm 4.00-6.00 RED CELL DISTRIBUTION WIDTH 11.5 % 11.0- 15.6 WHITE BLOOD CELL 11.2 k/cumm 5.0-10.0 HEMOGLOBIN 13.5 gm/dL 12.0-16.0 HEMATOCRIT 39.1 % 37.0-47.0 PLATELET COUNT 247 k/cumm 150-400 URINALYSIS, ROUTINE - 08/14/16 03:00 UA LEUKOCYTE ESTERASE DIPSTICK NEGATIVE NEGATIVE UA NITRITE DIPSTICK NEGATIVE NEGATIVE UA PROTEIN DIPSTICK NEGATIVE NEGATIVE UA GLUCOSE DIPSTICK NEGATIVE NEGATIVE UA KETONE DIPSTICK NEGATIVE NEGATIVE UA UROBILINOGEN DIPSTICK NORMAL NORMAL UA BILIRUBIN DIPSTICK NEGATIVE NEGATIVE UA BLOOD DIPSTICK 1+ NEGATIVE UA SPECIFIC GRAVITY 1.020 1.015-1.025 UR PH 5.0 5.0-7.0 UA MICROSCOPIC - 08/14/16 03:00 UA BACTERIA 1+ NEGATIVE UA EPITHELIAL CELLS 1+ epi/hpf 0 - 1+ UA MUCUS 1+ NEG TO 1+ UA RBC 3-5 rbc/hpf 0 - 3 UA VOLUME FOR EXAM 12.0 mL (12mL STD) UA WBC 0-1 wbc/hpf 0 - 5 Encounters ACCT No. Visit Date/Time Discharge Status Pt. Type Provider Facility Loc./Unit Complaint [id number] 11/11/2013 13:50:00 11/11/2013 23 :59:59 CLS Outpatient [id number] 10/31/2013 14:00:00 10/31/2013 23 :59:59 CLS Outpatient [id number] 10/18/2013 11:12:00 10/18/2013 23 :59:59 CLS Outpatient [id number] 08/02/2013 10:09:00 08/02/2013 23 :59:59 CLS Outpatient
--- OUTSIDE RECORDS SUMMARY | 2016-12-20 11:28 | XMS REPORT | Referral Summary ---
Author Author [facility] Organization [facility] Address Unknown Phone Unavailable Care Team Providers Care Medical Dosimetrist Name Role Phone James Vega Primary Care Physician [phone] Encounter VC Date(s): 06/22/15 - 06/22/15 [facility] [address] [place] [id number] Discharge Diagnosis: Migraine headache without [...]
--- OUTSIDE RECORDS SUMMARY | 2016-12-20 11:28 | XMS REPORT | Continuity of Care Document ---
Author Author Dolores Lance MA [facility] Ambulatory Address [address] [place] [address] Phone Care Team Providers Care Dairy Nutrition Specialist Name Role Phone Amish Vega PP Unavailable Kandi Fowler RP Unavailable Payers Payer name Insurance type Covered libertarian ID Authorization(s) Unknown Problems Condition Effective Dates (start - stop) Clinical Status Hot flashes - *Chronic Backache - *Acute Tattoo of skin - *Acute Fibromyalgia - Improved Bipolar affective disorder, current episode hypoma - *Chronic Mental confusion - *Worse Headache - *Acute Dizziness - *Acute Nausea And Vomiting - *Acute Visual disturbance - *Acute Dysarthria - *Acute Sinusitis, Acute - *Acute Follow-up examination, following other surgery - *Acute Adenosis, breast - *Acute Pain in joint involving shoulder region - *Chronic Bone pain - *Worse Fibromyalgia - *Worse [...] with female genital organs - * Acute Family History Family Member Diagnosis Age At [...] Dosage Effective Dates (start - stop) Status Ambien 10 mg tablet take 1 tablet (10MG) by oral route every day at bedtime as needed 10 MG - Active Ambien 10 mg tablet take 1 tablet (10MG) by oral route every day at bedtime 10 MG - No Longer Active Naprosyn 500 mg tablet take 1 tablet (500MG) by oral route 2 times every day with food 500 MG - Active Bystolic 5 mg tablet take 1 tablet (5MG) by oral route every day 5 MG - Active Viibryd 40 mg tablet take 1 tablet (40MG) by oral route every day with food 40 MG - Active Percocet 10 mg-325 mg tablet take 1 - 2 by oral route every 6 hours as needed DO NOT EXCEED 6 TABS IN 24HRS. - Active Immunizations Vaccine Date Status Comments Td (adult) completed - Completed reason: source unspecified hep B (adult) completed - Completed reason: source unspecified flu (split) (3 yrs or older) completed - Completed reason: source unspecified Td (adult) completed - Completed reason: source unspecified hep B (ped/adol, 3 dose) completed - Completed reason: source unspecified hep B (ped/adol, 3 dose) completed - Completed reason: source unspecified HPV (quadrivalent) completed - Completed reason: source unspecified HPV (quadrivalent) completed - Completed reason: source unspecified MCV4 completed - Completed reason: source unspecified HPV (quadrivalent) completed - Completed reason: source unspecified Results Test Name Date and Time Measure Units Reference Range Abnormal Flag Comments Panel Description: T4-AMS Thyroxine (T4) 13:31:00 8.0 ug/dL 4.8-11.7 Testing performed at [facility] Reference Lab [address] [address] Will Call Clerk Jayosn Navarro MD Panel Description: TSH-AMS TSH 13:31:00 0.99 uIU/mL 0.35-4.94 Testing performed at [facility] Reference Lab [address] [address] Will Call Clerk Jayson Navarro MD Vital Signs Date / Time: Height Weight Pulse Rate Blood Pressure Temperature /10:13:00 65.00 in 174.00 lbs 88 /min 120/74 mm[Hg] Procedures Procedure Date Unknown Encounters Encounter Location Date Patient Visit [facility] Patient Visit [facility] Patient Visit [facility] Patient Visit [facility] Patient Visit [facility] Patient Visit [facility] Patient Visit [facility] Patient Visit [facility] Patient Visit [facility] Patient Visit [facility] Patient Visit [facility] Patient Visit [facility] Patient Visit [facility] Patient [facility] Patient [facility] Patient [facility] Patient [facility] Patient Visit [facility] E21 Patient Visit [facility] Patient Visit Conversion Patient Visit [facility] E21 Patient Visit [facility] E21 Patient [facility] Patient Visit [facility]21 Patient Visit [facility] E21 Patient Visit V[facility] E21 Patient Visit [facility] Patient Visit [facility] E21 Patient Visit [facility] E21 Patient Visit [facility] E21 Patient Visit [facility] E21 Patient Visit [facility] Patient Visit V[facility] E21 Patient Visit [facility] E21 Patient Visit [facility] Patient Visit [facility] E21 Patient Visit [facility]21 Patient Visit [facility] E21 Patient Visit [facility] Patient Visit Conversion Advance Directives Directive Effective Date Unknown
--- OUTSIDE RECORDS SUMMARY | 2016-12-20 11:28 | XMS REPORT | Referral Summary ---
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 Name Role Phone James Vega Primary Care Physician [phone] Encounter [facility] [id number] Date(s): 01/05/15 - 01/05/15 [facility] [address] [place] [id number] Discharge Diagnosis: Bipolar 1 disorder Discharge Disposition: 01-Home or Self Care Attending Physician: Kandi Fowler Admitting Physician: Kandi Fowler Vital Signs Most recent to 1 oldest [Reference Range]: Temperature Oral 37.0 degC [35.8-37.3 degC] (01/05/15 1:00 PM) Peripheral Pulse 103 bpm Rate [60-100 bpm] *HI* (01/05/15 1:00 PM) Blood Pressure 100/62 mmHg [90-140/60-90 mmHg] (01/05/15 1:00 PM) SpO2 98 % (01/05/15 1:00 PM) Problem List Condition Effective Dates Status [...] Office Visit Note Author: Kandi Fowler Date: 01/05/15 Assessment/Plan 1.Bipolar 1 disorder Discussed multiple treatment options but since she has done very well on Depakote previously without side effects, will restart thatmedication. Refilled Ambien. Recheck 1 month. Orders: divalproex sodium, See Instructions, 1 tab PO in AM, tabs PO in PM, # 90 tabs, 1 Refill(s), Pharmacy: [id number], 1 tab PO in AM, tabs PO in PM nebivolol, 1 tabs, Oral, Daily, # 30 tabs, 5 Refill(s), Pharmacy: [id number], 1 tabs Oral Daily zolpidem, 0.5 tabs, Oral, Bedtime (once a day), as needed for sleep, # 15 tabs , 0 Refill(s)
--- OUTSIDE RECORDS SUMMARY | 2016-12-20 11:28 | XMS REPORT | Referral Summary ---
Author Organization Unknown Address Unknown Phone Unavailable Care Team Providers Care Test Car Driver Name Role Phone James Vega Primary Care Physician [phone] Encounter VC MARINA [id number] Date(s): 10/30/14 - 10/30/14 [address] [facility] [address], E , [facility] [address], [place] [address] Discharge Diagnosis: Puncture wound of foot Discharge Disposition: Home or Self Care Attending Physician: Kandi Fowler Admitting Physician: Kandi Fowler Vital Signs Most recent to 1 oldest [Reference Range]: Temperature Oral 36.7 degC [35.8-37.3 degC] (10/30/14 1:11 PM) Peripheral Pulse 77 bpm Rate [60-100 bpm] (10/30/14 1:11 PM) Blood Pressure 110/64 mmHg [90-140/60-90 mmHg] (10/30/14 1:11 PM) Most recent to 1 oldest [Reference Range]: SpO2 100 % (10/30/14 1:11 PM) Problem List Condition Effective Dates Status [...] Daily, # 30 tabs, 3 Refill(s), Pharmacy: [id number], 1 tabs Oral Daily Start Date: 09/29/14 Status: Ordered Bystolic 5 mg oral tablet 1 tabs, Oral, Daily, # 30 tabs, 6 Refill(s) Start Date: 02/08/14 Status: Ordered Bystolic 5 mg oral tablet 1 tabs, Oral, Daily, # 30 tabs, 0 Refill(s), Pharmacy: [id number], 1 tabs Oral Daily Start Date: 07/20/14 Status: Ordered cetirizine-pseudoePHEDrine 5 mg-120 mg oral tablet, extended release 1 tabs, Oral, BID, # 60 tabs, 0 Refill(s), called to pharmacy (Rx) Start Date: 03/23/14 Status: Ordered Cipro 500 mg oral tablet 1 tabs, Oral, q12hr, X 10 days, # 20 tabs, 0 Refill(s), Pharmacy: [id number], 1 tabs Oral q12hr,x10 days Start Date: 10/30/14 Stop Date: 11/09/14 Status: Ordered cyclobenzaprine 10 mg oral tablet 1 tabs, Oral, TID, # 90 tabs, 3 Refill(s), Pharmacy: [id number] , 1 tabs Oral TID Start Date: 03/13/14 Status: Ordered foam for head foam for head, 0 Refill(s) Start Date: 10/03/14 Status: Ordered Nasonex 50 mcg/inh nasal spray 2 sprays, Nasal, BID, # 17 g, 2 Refill(s), Pharmacy: [id number] Start Date: 10/03/14 Status: Ordered Olux 0.05% topical foam 1 amparo, Topical, Daily, # 100 g, 0 Refill(s), Pharmacy: [id number] Start Date: 09/28/14 Stop Date: 01/04/15 Status: Ordered Percocet 10/325 oral tablet 1 tabs, Oral, q6hr, as needed for pain, # 60 tabs, 0 Refill(s) Start Date: 10/11/14 Status: Ordered predniSONE 20 mg oral tablet See Instructions, one po bid (am/noon) x 4 days then one po daily x 3 days with food, # 11 tabs, 0 Refill(s), Pharmacy: [id number], one po bid (am/noon) x 4 days [...] # 30 unknown unit, 4 Refill(s), eRx: [facility], TAKE 1 TABLET (50MG) BY ORAL [...] Office Visit Note Author: Kandi Fowler Date: 10/30/14 Assessment/Plan 1.Puncture wound of foot Treat with Cipro. Alternate ibuprofen and Percocet. Recheck 1 week PRN. Orders: ciprofloxacin, 1 tabs, Oral, q12hr, X 10 days, # 20 tabs, 0 Refill(s) , Pharmacy: [id number], 1 tabs Oral q12hr,x10 days
--- OUTSIDE RECORDS SUMMARY | 2016-12-20 12:49 | XMS REPORT | Continuity of Care Document ---
Author Author [facility] Organization [facility] Address Unknown Phone Unavailable Allergies Active Description [...] PLATELET COUNT 193 k/cumm 150-400 METABOLIC PANEL, [facility] 08/08/12 21:49 POTASSIUM 3.5 mmol/L 3.5-5.3 [...] Status Pt. Type Provider Facility Loc./Unit Complaint [id number] 11/11/2013 13:50:00 11/11/2013 23 :59:59 [facility] Outpatient [id number] 10/31/2013 14:00:00 10/31/2013 23 :59:59 [facility] Outpatient [id number] 10/18/2013 11:12:00 10/18/2013 23 :59:59 [facility] Outpatient [id number] 08/02/2013 10:09:00 08/02/2013 23 :59:59 CLS Outpatient
[2016-12-20] MEDS ORDERED: OXYC-533 PO (12:58)
[2016-12-20] MEDS ORDERED: SERT100T12 PO (12:58)
[2016-12-20] MEDS ORDERED: DIAZ10TA4 PO (12:58)
[2016-12-20] MEDS ORDERED: METH750T3 PO (13:00)
[2016-12-20] MEDS ORDERED: MELA10TA2 PO (13:00)
[2016-12-20] MEDS ORDERED: ERGO500044 PO (13:00)
--- NOTE | 2016-12-20 13:03 | NUR ---
PROVIDER DR OSCAR IN TO CUT CAST OFF.
--- NOTE | 2016-12-20 13:13 | NUR ---
SPLINT DR OSCAR IN TO PLACE SPLINT.
--- NOTE | 2016-12-20 14:07 | ERPDOC ---
Departure Disposition Decision Date: Dec 20, 2016 Disposition Decision Time: 14:11 Disposition: 01 DISCHARGED HOME, SELF-CARE Impression Impression Impression: Primary Impression: Sprain of left foot Additional Impression: Fracture of left foot Severity: Moderate Condition: Stable Seen By: Physician only Referrals: ANGELA JACQUES (PCP) Patient Instructions: Foot Fracture in Adults (ED) Problems/Meds/Labs Reviewed?: Yes Medications reviewed and manag: Yes Additional Instructions: Use postop shoe when walking. Keep cast dry. In 2 weeks follow up with primary care provider. Follow up care ordered?: Yes Mental Status: Alert, Oriented HPI General Chief Complaint: Lower Extremity Pain Stated Complaint: RECAST RIGHT FOOT Time Seen by Provider: 11:49 HPI Foot/Ankle Initial Comments Left foot pain for several weeks. Cast applied and is breaking down due to walking. she would like it replaced. Spoke with her physician and he approved of applying a new cast if the patient requested. Allergies: Coded Allergies: Penicillins (Verified Allergy, Unknown, RASH, 12/20/16) butorphanol (Verified Allergy, Unknown, MOUTH SWELLING, 12/20/16) lamotrigine (Verified Allergy, Unknown, DEUCE KRISTIE, 12/20/16) nortriptyline (Verified Allergy, Unknown, 12/20/16) Past History Social History Smoking Status: Never smoker Substance Use Type: does not use Marital Status: Sexuality: male partner Record Review Pertinent history updated: Yes Review of Systems Musculoskeletal General: see HPI All other Systems All Other Systems: Reviewed and Negative Exam General General Nourishment: well nourished, well developed, appears stated age, no acute distress General Body Habitus: well groomed Vital Signs: Temperature: 98.1, Source: Oral, Heart Rate: 73, Respiratory Rate : 12, BP: 131/72, Pulse Oximetry: 98 Height (Feet): 5 Height (Inches): 5.00 Respiratory (brief) Respiratory Brief: FOUND: clear all arriaga, equal bilaterally Cardiovascular (brief) Cardiac Brief: FOUND: regular rate, regular rhythm, NOT FOUND: pedal edema Musculoskeletal (brief) Comments Right foot examined, tender in for calcaneal as well as lateral edge of calcaneal. No bruising or edema noted. Patient also has denuded skin underneath fifth toe from rubbing on cast. Neurologic RN Documented GCS Eye Opening: Verbal: Motor: Total: Differential Diagnoses Considering: Other (fracture, stress fracture, grade 2 sprain, grade 3 sprain) Progress Results/Orders Orders Procedure Category Date Status Time Foot Right 3 Views RAD 12/20/16 Taken 11:49 Ankle Right 2 View RAD 12/20/16 Taken Progress Progress Short leg cast reapplied with ankle appropriately angled for walking. 3 inch OCL , total of 4 rolls used. Cotton liner was used. Patient will weight-bear with postop shoe. Follow-up with primary care provider within the next 2 weeks. SHARON OSCAR MD Dec 20, 2016 14:07
--- NOTE | 2016-12-20 20:38 | DI ---
Indication: ITS.REASON: fracture PROCEDURE: ANKLE RIGHT 2 VIEW: Encounter: Initial Comparison: None Findings: Casting material obscures fine bony detail. I'm unable to identify any definite fracture. No dislocation. Impression: Findings as above. .
--- NOTE | 2016-12-20 20:39 | DI ---
Indication: ITS.REASON: pain PROCEDURE: FOOT RIGHT 3 VIEWS: Encounter: Initial Comparison: None Findings: Casting material obscures fine bony detail. I do not identify any definite fracture. No dislocation. Joint spaces are normal. Impression: Findings as above. .
== END 2016-12-20 14:15 | disposition home or self-care (01) ==
LOC: ED 11:20
DX: S92.901D Unspecified fracture of right foot, subsequent encounter for fracture with routine healing (principal); S93.601D Unspecified sprain of right foot, subsequent encounter; X58.XXXD Exposure to other specified factors, subsequent encounter